=== PATIENT | female | born 1985 | race American Indian/Alaskan Native ===

== ENCOUNTER 2018-07-29 17:30 | Emergency (ER) | payer MEDICAID, OTHER ==
--- NOTE | 2018-07-29 19:22 | Emergency Department Report ---
ED ENT HPI - General Chief complaint: Dental/Oral Stated complaint: TOOTHACHE/STOMACH PAIN Time Seen by Provider: 07/29/18 19:19 Source: patient Mode of arrival: Ambulatory Limitations: No Limitations - History of Present Illness Initial comments: This is a 32-year-old male nontoxic, well nourished in appearance, no acute signs of distress presents to the ED with c/o of right upper and lower toothache 3 weeks. Patient stated is . Patient denies following up with a dentist. Patient stated that pain radiates from his job to his right side of head. Patient otherwise denies any head trauma. Patient describes toothache as aching level of 8 out of 10. Patient denies any facial swelling. Patient denies any numbness, tingling, fever, chills, headache, stiff neck, abdominal pain, chest pain, shortness of breath. Patient denies any drug allergies or significant past medical history. MD complaint: tooth pain -: week(s) (3) Location: tooth # 1 - pain here 2 - pain here Severity: mild Severity scale (0 -10): 8 Quality: aching Consistency: constant Improves with: none Worsens with: none Associated Symptoms: gum swelling, toothache. denies: fever, cough, pain with swallowing, sore throat, tinnitus, hearing loss, discharge from ear, rhinorrhea - Related Data Previous Rx's Medication Instructions Recorded Last Taken Type Pnv No.121/Iron/Folic Acid 1 each PO DAILY #30 tablet 07/04/18 Unknown Rx [ Multivitamin Tablet] Acetaminophen [Tylenol] 325 mg PO Q8H PRN #20 capsule 07/29/18 Unknown Rx Amoxicillin/K Clav Tab [Augmentin 1 tab PO Q12HR #20 tab 07/29/18 Unknown Rx 875 mg] Allergies Allergy/AdvReac Type Severity Reaction Status Date / Time No Known Allergies Allergy Unverified 07/04/18 15:42 ED Dental HPI - General Chief complaint: Dental/Oral Stated complaint: TOOTHACHE/STOMACH PAIN Time Seen by Provider: 07/29/18 19:19 Source: patient Mode of arrival: Ambulatory Limitations: No Limitations - Related Data Previous Rx's Medication Instructions Recorded Last Taken Type Pnv No.121/Iron/Folic Acid 1 each PO DAILY #30 tablet 07/04/18 Unknown Rx [ Multivitamin Tablet] Acetaminophen [Tylenol] 325 mg PO Q8H PRN #20 capsule 07/29/18 Unknown Rx Amoxicillin/K Clav Tab [Augmentin 1 tab PO Q12HR #20 tab 07/29/18 Unknown Rx 875 mg] Allergies Allergy/AdvReac Type Severity Reaction Status Date / Time No Known Allergies Allergy Unverified 07/04/18 15:42 ED Review of Systems ROS: Stated complaint: TOOTHACHE/STOMACH PAIN Other details as noted in HPI Constitutional: denies: chills, fever Eyes: denies: eye pain, eye discharge, vision change ENT: dental pain. denies: ear pain, throat pain Respiratory: denies: cough, shortness of breath, wheezing Cardiovascular: denies: chest pain, palpitations Endocrine: no symptoms reported Gastrointestinal: denies: abdominal pain, nausea, diarrhea Genitourinary: denies: urgency, dysuria, discharge Musculoskeletal: denies: back pain, joint swelling, arthralgia Skin: denies: rash, lesions Neurological: denies: headache, weakness, paresthesias Psychiatric: denies: anxiety, depression Hematological/Lymphatic: denies: easy bleeding, easy bruising ED Past Medical Hx - Surgical History Additional Surgical History: x1 - Social History Smoking Status: Never Smoker Substance Use Type: None - Medications Home Medications: Home Medications Medication Instructions Recorded Confirmed Last Taken Type Pnv No.121/Iron/Folic Acid 1 each PO DAILY #30 tablet 07/04/18 Unknown Rx [ Multivitamin Tablet] Acetaminophen [Tylenol] 325 mg PO Q8H PRN #20 capsule 07/29/18 Unknown Rx Amoxicillin/K Clav Tab [Augmentin 1 tab PO Q12HR #20 tab 07/29/18 Unknown Rx 875 mg] ED Physical Exam - General Limitations: No Limitations General appearance: alert, in no apparent distress - Head Head exam: Present: atraumatic, normocephalic - Expanded ENT Exam Expanded Ear exam: Present: normal external inspection Mouth exam: Present: normal external inspection. Absent: drooling, trismus Teeth exam: Present: dental caries, fractured tooth #, dental tenderness #, gingival enlargement, other (no facial swelling) Throat exam: Positive: normal inspection, tonsillar exudate - Neck Neck exam: Present: normal inspection ED Course - Reevaluation(s) Reevaluation #1: 07/29/18 19:25 Patient is speaking in full sentences with no signs of distress noted. Critical care attestation.: If time is entered above; I have spent that time in minutes in the direct care of this critically ill patient, excluding procedure time. ED Disposition Clinical Impression: Dental caries, Gingivitis Disposition: TO HOME OR SELFCARE Is pt being admited?: No Does the pt Need Aspirin: No Condition: Stable Instructions: Dental Caries (ED), Gingivitis (ED) Additional Instructions: Follow-up with a dentist doctor in 3-5 days or if symptoms worsen and continue return to emergency room as soon as possible. Prescriptions: Acetaminophen [Tylenol] 325 mg PO Q8H PRN #20 capsule PRN Reason: Pain, Moderate (4-6) Amoxicillin/K Clav Tab [Augmentin 875 mg] 1 tab PO Q12HR #20 tab Referrals: PRIMARY CAREMD [Referring] - 3-5 Days SHERYL CALDERON MD [Staff Physician] - 3-5 Days [facility] [Outside] - 3-5 Days Forms: Work/School Release Form(ED)
[2018-07-29 19:32] VITALS: BP 120/70
== END 2018-07-29 19:41 | disposition home or self-care (01) ==
LOC: ED 17:30
DX: K02.9 Dental caries, unspecified (principal); K05.10 Chronic gingivitis, plaque induced
CPT/HCPCS: 99282

== ENCOUNTER 2018-10-26 16:36 | Inpatient (IN) | payer MEDICAID ==
--- NOTE | 2018-10-26 23:48 | Ultrasound Report ---
PROCEDURE: US OB BPP WO NON-STRESS TECHNIQUE: Sonographic evaluation for breathing, movement, tone, and amniotic flui d volume was performed. HISTORY: s/p fall trauma COMPARISONS: None . FINDINGS: FETUS Amniotic fluid volume score of 0 . breathing: Normal-score 2 . movement: Normal-score 2 . tone: Normal-score 2 . Score: 6 of 8 . IMPRESSION: Biophysical profile score of 6 of 8. Diminished amniotic fluid volume . This document is electronically signed by Carol Sandoval DO., Oct 26 2018 11:46:15 PM ET
--- NOTE | 2018-10-26 23:50 | Ultrasound Report ---
PROCEDURE: US OB LIMITED TECHNIQUE: Real-time limited sonographic examination was performed for evaluation of well-bein g, amniotic fluid for each fetus with image documentation (1 or more fetuses). HISTORY: Trauma s/p fall COMPARISONS: None . FINDINGS: There is a single fetus in a vertex presentation. heart rate 1 35 bpm. The amniotic fluid volum e for 4 quadrants is 3.2 cm. This is diminished. No other measurements are obtained on this study. IMPRESSION: There is a single fetus in a vertex presentation. heart rate 1 35 bpm. 4 quadrant amniotic fluid volume 3.2 cm, this is diminished. This document is electronically signed by Carol Sandoval DO., Oct 26 2018 11:48:45 PM ET
[2018-10-27] MEDS ORDERED: COLACE PO PRN (00:01)
[2018-10-27] MEDS: LACTATED RINGERS 1,000 ML IV SCH ×4 (00:38→23:57)
[2018-10-27 00:52] LABS: Basophils % (Auto) 0.6 % (0.0-1.8); Eosinophils # (Auto) 0.5 K/mm3 (0.0-0.4); Eosinophils % (Auto) 6.8 % (0.0-4.3); Hematocrit 36.7 % (30.3-42.9); Hemoglobin 12.8 gm/dl (10.1-14.3); Lymphocytes # (Auto) 1.9 K/mm3 (1.2-5.4); Lymphocytes % (Auto) 26.7 % (13.4-35.0); Mean Corpuscular HGB Conc 35 % (30-34); Mean Corpuscular Volume 90 fl (79-97); Monocytes # (Auto) 0.6 K/mm3 (0.0-0.8); Platelet Count 197 K/mm3 (140-440); Red Blood Count 4.07 M/mm3 (3.65-5.03); Red Cell Distribution Width 14.1 % (13.2-15.2)
--- NOTE | 2018-10-27 09:54 | History and Physical Report ---
History of Present Illness Chief complaint: "I fell on Friday" History of present illness: 32yo 35 1/7 weeks gestation, a patient of [facility] was told to come to L&D on Friday 4 days after falling at a wedding. She states the step was hard to visualiz and she fell on her left backside. She denies any bleeding or fluid loss and reports good movement. SHE HAS HAD ONE PRIOR CSECTION AND ONE SUBSEQUENT , both at [place]. She states she began care at [address] Frank Sheth. She states her first and only ultrasound was 10/05/18. Yesterday, An ultrasound was done revealing an PAULINO of 3.2cm Her records are not available from [facility]. She was monitored on L&D and ultrasound repeated and PAULINO is 4.5. Therefore she is being admitted for IV hydration and maternal medicine consult. Her BPP is 6/8 (-2 for oligohydramnios) Past History Past Surgical History: section Social history: , lives with family - Obstetrical History : 5 Number of Living Children: 4 (youngest 1year 7mo) Medications and Allergies Allergies Allergy/AdvReac Type Severity Reaction Status Date / Time No Known Allergies Allergy Unverified 07/04/18 15:42 Home Medications Medication Instructions Recorded Confirmed Last Taken Type Pnv No.121/Iron/Folic Acid 1 each PO DAILY #30 tablet 07/04/18 10/27/18 10/25/18 Rx [ Multivitamin Tablet] Active Meds: Active Medications Acetaminophen (Tylenol) 650 mg PO Q4H PRN PRN Reason: Pain MILD(1-3)/Fever >100.5/MELGOZA Docusate Sodium (Colace) 100 mg PO Q12H PRN PRN Reason: Constipation Lactated Ringer's (Lactated Ringers) 1,000 mls @ 125 mls/hr IV DIRECT LEIGHANN Last Admin: 10/27/18 00:38 Dose: 125 mls/hr Documented by: Multivitamins/Iron/Calcium ( Vitamin) 1 each PO QDAY LEIGHANN - Vital Signs Vital signs: Vital Signs Pulse BP 77 124/83 10/26/18 18:32 10/26/18 18:32 Temp Pulse Resp BP Pulse Ox 98.2 F 88 18 118/75 10/26/18 23:31 10/27/18 04:25 10/26/18 18:33 10/27/18 04:25 - Obstetrical FHR: category 1 Results Result Diagrams: 10/27/18 00:38 Abnormal lab results 10/27/18 Range/Units 00:38 MCHC 35 H (30-34) % [place] % (Auto) 8.0 H (0.0-7.3) % Eos % (Auto) 6.8 H (0.0-4.3) % Eos # 0.5 H (0.0-0.4) K/mm3 All other labs normal. Assessment and Plan - Patient Problems (1) 35 weeks gestation of Current Visit: Yes Status: Acute Plan to address problem: PREVIOUS SECTION - 4 years ago. PREVIOUS 1 yr 7 months ago Obtain records from [facility] (2) Oligohydramnios Current Visit: Yes Status: Acute Plan to address problem: IV hydration Maternal medicine consult US for EFW, presentation
[2018-10-27] MEDS: PRENATAL VITAMIN PO SCH (10:47)
[2018-10-27] MEDS: TYLENOL PO PRN ×2 (10:48→19:28)
--- NOTE | 2018-10-27 12:30 | Ultrasound Report ---
ULTRASOUND OB LIMITED History: Decreased PAULINO Technique: Transabdominal ultrasound with Doppler interrogation. Gestation: Single Position: Cephalic Amniotic Fluid: Decreased PAULINO = 4.5 cm Heart Rate: 168 BPM
[2018-10-27] MEDS ORDERED: TYLENOL #3 PO ONE (23:00)
[2018-10-28] MEDS ORDERED: MORPHINE IV ONE (00:55)
[2018-10-28] MEDS: TYLENOL PO PRN ×3 (04:26→18:17)
[2018-10-28] MEDS: LACTATED RINGERS 1,000 ML IV SCH ×3 (04:28→17:17)
--- NOTE | 2018-10-28 10:57 | Progress Note ---
Assessment and Plan - Patient Problems (1) 35 weeks gestation of Current Visit: Yes Status: Acute (2) Oligohydramnios Current Visit: Yes Status: Acute Plan to address problem: Continous monitoring. APA consult. Celestone for FLM. (3) SGA (small for gestational age), , affecting care of mother, antepartum Current Visit: Yes Status: Acute Plan to address problem: Patient's fundus is 32 cm. I told her that 3rd trimester sonogram are usually inaccurate at dating pregnancies and that she may be anywhere between 32 and 35 weeks gestation. Steroid for FLM ordered. Sonogram for PAULINO, EFW, BPP today. APA consult called. (4) Late care affecting Current Visit: Yes Status: Acute (5) Previous delivery affecting Current Visit: Yes Status: Acute Plan to address problem: Patient had 1 . (6) Toothache Current Visit: Yes Status: Acute Plan to address problem: Patient has appointment with dentist later this week. Augmentin given for possible dental infection. (7) Gestational HTN Current Visit: Yes Status: Acute Plan to address problem: Toxemia labs ordered. Subjective - Subjective Date of service: 10/28/18 Principal diagnosis: SIUP at 32 weeks with oligohydramnios Interval history: Patient is a 32 year old , LMP in , who presented to triage on 10/26/18 after she sustained a fall while attending an event with her family 2 days earlier (10/24/18). She denied any contractions, bleeding, fluid leakage. She reported good movement. Sonogram was done and showed an PAULINO of 3.2. She was admitted for observation, given IV hydration. Repeat sonogram 24 hours later showed an PAULINO of 4.5. She is a patient of [facility] and was a late registrant to care 2 weeks ago. She had her first sonogram on 10/05/18 who gave her an EDC of 11/30/18. This AM, she denies any contractions or fluid leakage but reported having a toothache and nasal congestion. She is afebrile. tracing is CAT1. Exam: fundal height 32 cm. Objective - Vital Signs Vital Signs: Vital Signs - 12hr 10/27/18 10/27/18 10/28/18 23:04 23:58 00:04 Temperature 98.1 F Pulse Rate 71 74 Respiratory 18 18 18 Rate Blood Pressure 167/100 Blood Pressure 157/78 [Left] 10/28/18 10/28/18 10/28/18 00:06 00:27 01:03 Temperature Pulse Rate 71 81 Respiratory 18 Rate Blood Pressure 157/78 158/100 Blood Pressure [Left] 10/28/18 10/28/18 10/28/18 01:06 01:30 01:33 Temperature Pulse Rate 77 65 Respiratory 18 Rate Blood Pressure 141/94 143/92 Blood Pressure [Left] 10/28/18 10/28/18 10/28/18 04:26 05:26 10:06 Temperature Pulse Rate 90 Respiratory 18 18 Rate Blood Pressure 137/91 Blood Pressure [Left] - Exam Cardiovascular: Normal S1, Normal S2 Lungs: Clear to auscultation Vulva: both: normal FHR: category 1 Uterine Contraction Monitor Mode: External Uterine Contraction Pattern: Absent Deep Tendon Reflex Grade: Normal +2 - Labs Labs: Abnormal Labs 10/27/18 00:38 MCHC 35 H [place] % (Auto) 8.0 H Eos % (Auto) 6.8 H Eos # 0.5 H - Results US- obstetric: report reviewed
--- NOTE | 2018-10-28 11:30 | Consultation ---
History of Present Illness Reason for consult: other (32yo 35 2/7 weeks gestation, a patient of [facility] She states she began care at [address] Frank Sheth. She states her first and only ultrasound was 10/05/18. Pt was told ( [facility] ) to come to L&D on Friday 4 days after falling at a wedding. She states she fell on her left backside. Yesterday, An ultrasound was done revealing an PAULINO of 3.2cm Her records are not available from [facility]. She was monitored on L&D and ultrasound repeated and PAULINO is 4.5. Therefore she is being admitted for IV hydration and BMZ Her BPP is 6/8 (-2 for oligohydramnios) Consult request OB provider stated " her belly felt small . fundal height is low" NO EFW was obtained She denies any bleeding or fluid loss and reports good movement. ) Past History Past Surgical History: section - Obstetrical History : 5 Medications and Allergies Allergies Allergy/AdvReac Type Severity Reaction Status Date / Time No Known Allergies Allergy Unverified 07/04/18 15:42 Home Medications Medication Instructions Recorded Confirmed Last Taken Type Pnv No.121/Iron/Folic Acid 1 each PO DAILY #30 tablet 07/04/18 10/27/18 10/25/18 Rx [ Multivitamin Tablet] Active Meds: Active Medications Acetaminophen (Tylenol) 650 mg PO Q4H PRN PRN Reason: Pain MILD(1-3)/Fever >100.5/MELGOZA Last Admin: 10/28/18 04:26 Dose: 650 mg Documented by: Amoxicillin/Clavulanate Potassium (Augmentin 875 Mg) 1 each PO Q12HR LEIGHANN Betamethasone Acet/Betameth SodPhos (Celestone Soluspan) 12 mg IM Q24HR LEIGHANN Docusate Sodium (Colace) 100 mg PO Q12H PRN PRN Reason: Constipation Lactated Ringer's (Lactated Ringers) 1,000 mls @ 200 mls/hr IV DIRECT LEIGHANN Stop: 10/31/18 00:59 Last Admin: 10/28/18 09:47 Dose: 125 mls/hr Documented by: Multivitamins/Iron/Calcium ( Vitamin) 1 each PO QDAY LEIGHANN Last Admin: 10/27/18 10:47 Dose: 1 each Documented by: Review of Systems Constitutional: no chills Eyes: deferred Ears, nose, mouth and throat: deferred Cardiovascular: no edema Breasts: deferred Gastrointestinal: no abdominal pain Genitourinary: no vaginal bleeding, no vaginal discharge, no leakage of fluid, no pelvic pain, no contractions Rectal Exam: deferred Neurological: no seizures Endocrine: no fatigue - Vital Signs Vital signs: Vital Signs Pulse BP 77 124/83 10/26/18 18:32 10/26/18 18:32 Temp Pulse Resp BP Pulse Ox 98.4 F 90 16 137/91 10/28/18 09:15 10/28/18 10:06 10/28/18 09:15 10/28/18 10:06 - Physical Exam Breasts: Positive: deferred Cardiovascular: Regular rate Lungs: Positive: Normal air movement Abdomen: Negative: tenderness, guarding Uterus: Negative: tender Extremities: Positive: normal - Obstetrical FHR: category 1 (for 35.2 weeks ) Uterine Contraction Monitor Mode: External Uterine Contraction Pattern: Absent Results Result Diagrams: 10/28/18 12:56 10/28/18 12:56 All other labs normal. Ultrasound: report reviewed (SEE [facility] full report ) Assessment and Plan A ) IUP @ 35.2 weeks Limited PNC ( x 1 visit ) Oligo Reported by Primary OB S < D ( NO EFW provided ) BPP of 6/8 ( - 2 for Oligo ) Prev C/S history + history IV hydration in progress BMZ for FLM P) Remain in patient Reassess PAULINO 48 hrs Document her genetic screen ( NIPT or MSAFP) Document her EFW Continue current medical regimen Document negative nitrazine and pelvic exam for ROM Complete BMZ for FLM Remain in patient until PAULINO > 7 cm With a continued Oligo as per ACOG timing of delivery Late / Early Term @ 36-37 weeks
[2018-10-28] MEDS: PRENATAL VITAMIN PO SCH (11:39)
[2018-10-28] MEDS: CELESTONE SOLUSPAN IM SCH (11:41)
[2018-10-28] MEDS: AUGMENTIN 875 MG PO SCH (12:43)
[2018-10-28 13:42] LABS: Hematocrit 36.1 % (30.3-42.9); Hemoglobin 12.1 gm/dl (10.1-14.3); Mean Corpuscular HGB Conc 34 % (30-34); Mean Corpuscular Volume 91 fl (79-97); Platelet Count 175 K/mm3 (140-440); Red Blood Count 3.95 M/mm3 (3.65-5.03); Red Cell Distribution Width 13.8 % (13.2-15.2)
[2018-10-28 14:08] LABS: Alanine Aminotransferase 8 units/L (7-56); Uric Acid 4.6 mg/dL (3.5-7.6)
--- NOTE | 2018-10-28 16:50 | Ultrasound Report ---
PROCEDURE: US OB >= 14 WEEKS FETUS TECHNIQUE: Real-time transabdominal sonography of the uterus, placenta, amniotic fluid, adnexa, and fetus was performed with image documentation. Measurements were obtained to determine age/size. M-mode Doppler was used to document heartbeat. ADDITIONAL GESTATION: None. HISTORY: conflicting dates vs measurements COMPARISONS: None . FINDINGS: Real-time ultrasound of the pelvis was performed with attention to the gravid uterus. The These images demonstrate a single live intrauterine gestation in cephalic lie. Amniotic fluid index is mildly low at 5.3 cm. There is a left lateral placenta, grade 2. cardiac activity is present at 143 bpm. Cervical length was 3.7 cm which is within normal limits. Biparietal diameter is 8.4 cm which corresponds to 33 weeks and 6 days. Head circumference was 30.7 cm which corresponds to 34 weeks and 2 days. Abdominal circumference is 26.0 cm which corresponds to 30 weeks and 1 day. femur length is 6.3 cm which corresponds to 32 weeks and 5 days. Estimated weight was 1814 g. IMPRESSION: Single live intrauterine gestation at approximately 32 weeks and 5 days. Estimated date of delivery i s December 18, 2018. Amniotic fluid index is low at 5.3 cm This document is electronically signed by Tim Goldberg MD., Oct 28 2018 04:48:49 PM ET
[2018-10-29] MEDS: AUGMENTIN 875 MG PO SCH ×3 (00:05→22:06)
[2018-10-29] MEDS: LACTATED RINGERS 1,000 ML IV SCH ×2 (08:49→16:49)
[2018-10-29] MEDS ORDERED: ZOFRAN IV PRN (09:35)
[2018-10-29] MEDS ORDERED: TYLENOL PO PRN (09:35)
[2018-10-29] MEDS: PRENATAL VITAMIN PO SCH (09:52)
[2018-10-29] MEDS ORDERED: PRENATAL VITAMIN PO SCH (10:00)
[2018-10-29] MEDS: CELESTONE SOLUSPAN IM SCH (11:42)
--- NOTE | 2018-10-29 11:55 | Progress Note ---
Assessment and Plan - Patient Problems (1) Oligohydramnios Current Visit: Yes Status: Acute Plan to address problem: Continous monitoring. APA consult done. Recommended to keep patient in the hospital until PAULINO is >7. F/U PAULINO on 10/30/18. Celestone for FLM completed today. (2) Late care affecting Current Visit: Yes Status: Acute (3) Previous delivery affecting Current Visit: Yes Status: Acute Plan to address problem: Patient had 1 . (4) Toothache Current Visit: Yes Status: Acute Plan to address problem: Patient has appointment with dentist later this week. Augmentin given for possible dental infection. (5) Gestational HTN Current Visit: Yes Status: Acute Plan to address problem: Toxemia labs were normal. BP has been stable. Pt remains asymptomatic. (6) 32 weeks gestation of Current Visit: Yes Status: Acute Plan to address problem: Fundal height is 32 cm. Sonogram correlates with 32 weeks gestation. Subjective - Subjective Date of service: 10/29/18 Principal diagnosis: SIUP at 32 weeks with oligohydramnios Interval history: Patient is a 32 year old , LMP in , who presented to triage on 10/26/18 after she sustained a fall while attending an event with her family 2 days earlier (10/24/18). She denied any contractions, bleeding, fluid leakage. She reported good movement. Sonogram was done and showed an PAULINO of 3.2. tracing was CAT1. She is a patient of [facility] and was a late registrant to care 2 weeks ago. She had her first sonogram on 10/05/18 who gave her an EDC of 11/30/18. She was admitted for observation, given IV hydration. Repeat sonogram 24 hours later showed an PAULINO of 4.5. Exam: fundal height is 32 cm. Sonogram (10/28/18) showed an EFW of 1814 gms, PAULINO 5.3. APA consult was done and agreed with inpatient observation, steroid for FLM. They recommended that patient remains inpatient until PAULINO is >7. Next sono scheduled for 10/30/18. Yesterday, she reported having a toothache and nasal congestion. She is on Augmentin PO for toothache. Objective - Vital Signs Vital Signs: Vital Signs - 12hr 10/29/18 10/29/18 10/29/18 03:15 04:10 05:53 Temperature 98.0 F 98.9 F Pulse Rate 88 Respiratory 20 20 Rate Blood Pressure 111/68 10/29/18 10/29/18 10/29/18 06:53 07:51 08:52 Temperature Pulse Rate 71 100 H 82 Respiratory Rate Blood Pressure 118/67 115/70 130/83 10/29/18 10/29/18 09:08 09:51 Temperature 97.7 F Pulse Rate 85 Respiratory Rate Blood Pressure 131/82 - Exam Cardiovascular: Normal S1, Normal S2 Lungs: Clear to auscultation Vulva: both: normal FHR: category 1 Uterine Contraction Monitor Mode: External Uterine Contraction Pattern: Absent Deep Tendon Reflex Grade: Normal +2 - Labs Labs: Abnormal Labs 10/27/18 10/28/18 00:38 12:56 MCHC 35 H [place] % (Auto) 8.0 H Eos % (Auto) 6.8 H Eos # 0.5 H Creatinine 0.4 L Laboratory Results - last 24 hr 10/28/18 10/28/18 12:56 12:56 WBC 4.8 RBC 3.95 Hgb 12.1 Hct 36.1 MCV 91 MCH 31 MCHC 34 RDW 13.8 Plt Count 175 Creatinine 0.4 L Estimated GFR > 60 Uric Acid 4.6 AST 13 ALT 8 Lactate Dehydrogenase 161 - Results US- obstetric: report reviewed
[2018-10-29 12:16] LABS: Bilirubin,Urine NEG (Negative); Blood,Urine NEG (Negative); Color,Urine Yellow (Yellow); Mucus,Urine FEW /HPF; Protein,Urine <15 mg/dL mg/dL (Negative); Urobilinogen,Urine < 2.0 mg/dL (<2.0); WBC,Urine < 1.0 /HPF (0.0-6.0)
[2018-10-29] MEDS: TYLENOL PO PRN (18:25)
[2018-10-29] MEDS ORDERED: AMBIEN PO PRN ×2 (22:00)
[2018-10-30] MEDS: LACTATED RINGERS 1,000 ML IV SCH ×3 (03:09→17:15)
--- NOTE | 2018-10-30 09:39 | Progress Note ---
Assessment and Plan - Patient Problems (1) Oligohydramnios Current Visit: Yes Status: Acute Plan to address problem: IV hydration Per APA consult plan to keep in house until PAULINO > 7. Currently 5.3 and US w PAULINO ordered for today. (2) 32 weeks gestation of Current Visit: Yes Status: Acute Plan to address problem: s/p BMZ for lung maturity Obtain records from office to compare dating/US. Limited care. History of fall. Subjective - Subjective Principal diagnosis: SIUP at 32 weeks with oligohydramnios Interval history: 32yo 32 weeks gestation by US done during this admission, a patient of [facility], being managed for oligohydramnios, BPP 6/8. Her NST remains Category II FHT. US EFW 1800g. Today she complains of loss of a small amount of fluid x 1 occurrence yesterday. No vaginal bleeding. She reports good movement. She is resting peacefully in bed. Objective - Vital Signs Vital Signs: Vital Signs - 12hr 10/30/18 10/30/18 10/30/18 03:03 04:03 04:07 Temperature 98.2 F Pulse Rate 73 77 Respiratory 18 Rate Blood Pressure 128/79 111/65 10/30/18 10/30/18 10/30/18 05:03 06:03 07:03 Temperature Pulse Rate 72 69 88 Respiratory Rate Blood Pressure 112/71 120/70 114/69 10/30/18 10/30/18 08:19 08:20 Temperature 97.7 F Pulse Rate 82 Respiratory 18 Rate Blood Pressure 117/77 - Labs Labs: Abnormal Labs 10/27/18 10/28/18 00:38 12:56 MCHC 35 H [place] % (Auto) 8.0 H Eos % (Auto) 6.8 H Eos # 0.5 H Creatinine 0.4 L Laboratory Results - last 24 hr 10/29/18 09:15 Urine Color Yellow Urine Turbidity Clear Urine pH 7.0 Ur Specific [place] 1.006 Urine Protein <15 mg/dl Urine Glucose (UA) Neg Urine Ketones 20 Urine Blood Neg Urine Nitrite Neg Urine Bilirubin Neg Urine Urobilinogen < 2.0 Ur Leukocyte Esterase Tr Urine WBC (Auto) < 1.0 Urine RBC (Auto) 2.0 U Epithel Cells (Auto) < 1.0 Urine Mucus Few
[2018-10-30] MEDS: PRENATAL VITAMIN PO SCH (10:06)
[2018-10-30] MEDS: AUGMENTIN 875 MG PO SCH ×2 (10:06→21:59)
--- NOTE | 2018-10-30 14:15 | Ultrasound Report ---
ULTRASOUND OB LIMITED History: PAULINO Technique: Transabdominal ultrasound with Doppler interrogation. Gestation: Single Position: Cephalic Amniotic Fluid: Decreased PAULINO = 2.4 cm Heart Rate: 130 BPM
--- NOTE | 2018-10-30 14:15 | Ultrasound Report ---
ULTRASOUND BIOPHYSICAL PROFILE: History: Oligohydramnios Technique: Transabdominal ultrasound with Doppler interrogation. 2 - breathing movements 2 - movements 2 - posture and tone 0 - Qualitative amniotic fluid volume 6 - TOTAL SCORE OF POSSIBLE 8 Heart Rate (bpm) 130
--- NOTE | 2018-10-30 17:07 | Event Note ---
CHART REVIEW Records received from [facility] today. Patient had 2 visits both 10/2018. labs drawn 08/17/2018. US ordered but not done at that time. Ultrasound completed 10/07/2018 - US not in chart. Final CARMELLA 11/30/2018 (unsure what Final CARMELLA based on) Gestational age 35wks 4/7 days presumably based on 31 week sono. -Initial Ultrasound from 10/07/18 NOT FAXED and patient unsure of LMP - was Therefore best summation is is IUGR and oligohydramnios based on available data.
--- NOTE | 2018-10-30 19:39 | Consultation ---
History of Present Illness Consult date: 10/30/18 Requesting physician: HENRY CORBETT History of present illness: (32yo ??? 35 2/7 weeks gestation but [facility] US on 10/28/18 Biometry of 32 5/7 weeks a patient of [facility] She states she began care at [address] Frank Sheth. She states her first and only ultrasound was 10/05/18. Pt was told ( [facility] ) to come to L&D on Friday 4 days after falling at a wedding. She states she fell on her left backside. An ultrasound was done revealing an PAULINO of 3.2cm Her records are not available from [facility]. She was monitored on L&D and ultrasound repeated and PAULINO is 4.5. Therefore she is being admitted for IV hydration and BMZ Her BPP is 6/8 (-2 for oligohydramnios) Consult request OB provider stated " her belly felt small . fundal height is low" ======= [facility] US on 10/28/18 Biometry of 32 5/7 weeks Records indicated she is 35 4/7 weeks with CARMELLA of 11/30/[address] CORBETT CHART REVIEW Records received from [facility] today. Patient had 2 visits both 10/2018. labs drawn 08/17/2018. US ordered but not done at that time. Ultrasound completed 10/07/2018 - US not in chart. Final CARMELLA 11/30/2018 (unsure what Final CARMELLA based on) Gestational age 35wks 4/7 days presumably based on 31 week sono. -Initial Ultrasound from 10/07/18 NOT FAXED and patient unsure of LMP - was Therefore best summation is is IUGR and oligohydramnios based on available data. Review of [facility] Records US done 10/05/18 put her at 32 0/7 weeks with CARMELLA of 11/30/18 would be at 1% Patient would be IUGR and Oligo Please obtain Cord Arterial Dopplers deliver if AEDF or Reverse otherwise Delivery indicated 24 Hours after after Steroid Complete and Patient IUGR with Oligo - Please have OB Review Records to confirm dating prior to delivery Discussed with Dr. Reji Sheth Please confirm PPROM Please get Cord Dopplers Review EFM and Category I tracing good accel and mod variabiltiy BPP and cord dopplers MWF Will Try to Contact [facility] but Dr. Jeffrey Sheth Not Available It is possible patient is 32 5/7 weeks by [facility] US on 10/28/18 putting her at 33 0/7 weeks today - other option to watch conservative management as long as A-P testing reassuring and EFM reassuring and delivery if PPROM at 34 weeks or if remains oligo at 36 to 37 weeks Past History Past Surgical History: section - Obstetrical History : 5 Medications and Allergies Allergies Allergy/AdvReac Type Severity Reaction Status Date / Time No Known Allergies Allergy Unverified 07/04/18 15:42 Home Medications Medication Instructions Recorded Confirmed Last Taken Type Pnv No.121/Iron/Folic Acid 1 each PO DAILY #30 tablet 07/04/18 10/27/18 10/25/18 Rx [ Multivitamin Tablet] Active Meds: Active Medications Acetaminophen (Tylenol) 650 mg PO Q4H PRN PRN Reason: Pain MILD(1-3)/Fever >100.5/MELGOZA Last Admin: 10/29/18 18:25 Dose: 650 mg Documented by: Amoxicillin/Clavulanate Potassium (Augmentin 875 Mg) 1 each PO Q12HR [facility] Last Admin: 10/30/18 10:06 Dose: 1 each Documented by: Docusate Sodium (Colace) 100 mg PO Q12H PRN PRN Reason: Constipation Lactated Ringer's (Lactated Ringers) 1,000 mls @ 200 mls/hr IV DIRECT LEIGHANN Stop: 10/31/18 00:59 Last Admin: 10/30/18 17:15 Dose: 125 mls/hr Documented by: Multivitamins/Iron/Calcium ( Vitamin) 1 each PO QDAY LEIGHANN Last Admin: 10/30/18 10:06 Dose: 1 each Documented by: Ondansetron HCl (Zofran) 4 mg IV Q6H PRN PRN Reason: Nausea And Vomiting Zolpidem Tartrate (Ambien) 2.5 mg PO QHS PRN PRN Reason: Insomnia - Vital Signs Vital signs: Vital Signs Pulse BP 77 124/83 10/26/18 18:32 10/26/18 18:32 Temp Pulse Resp BP Pulse Ox 97.9 F 78 18 132/78 10/30/18 15:48 10/30/18 15:50 10/30/18 15:48 10/30/18 15:50 Results Result Diagrams: 10/28/18 12:56 10/28/18 12:56 All other labs normal.
[2018-10-31] MEDS: LACTATED RINGERS 1,000 ML IV SCH ×3 (01:16→16:25)
[2018-10-31] MEDS: COLACE PO PRN (01:23)
[2018-10-31] MEDS: PRENATAL VITAMIN PO SCH (10:49)
[2018-10-31] MEDS: AUGMENTIN 875 MG PO SCH (10:49)
--- NOTE | 2018-10-31 12:10 | Progress Note ---
Assessment and Plan - Patient Problems (1) Oligohydramnios Current Visit: Yes Status: Acute Plan to address problem: At this point, gestational age is estimated to be 35 weeks and 5 days by sonogram. Celestone for FLM was completed when gestational age as assumed to be 32 weeks. [facility] consult was done. [facility] recommended delivery for oligohydramnios and IUGR. Cord doppler was normal today. Patient was counselled for repeat C/section. She ate. She will be NPO after midnight. Continous monitoring. (2) Late care affecting Current Visit: Yes Status: Acute (3) Previous delivery affecting Current Visit: Yes Status: Acute Plan to address problem: Patient had 1 . She was told [facility] and that she will be delivered via repeat C/section. Risks and benefits were discussed with her. (4) Toothache Current Visit: Yes Status: Acute Plan to address problem: Patient has appointment with dentist later this week. Augmentin given for possible dental infection. (5) IUGR (intrauterine growth restriction) Current Visit: Yes Status: Acute Plan to address problem: EFW was 1814 gms, PAULINO was 2. Umbilical doppler was normal today. [facility] saw the patient and recommended delivery as patient is considered 35 weeks and 5 days with IUGR and oligohydramnios. Repeat C/section was discussed with the patient. Risk and benefits of the procedure were discussed with the patient. She ate an hour ago. She needs to be NPO for 8 hours. Subjective - Subjective Date of service: 10/31/18 Principal diagnosis: SIUP at 35 weeks and 5 days with oligohydramnios and IUGR Interval history: Patient is a 32 year old , LMP in , who presented to triage on 10/26/18 after she sustained a fall while attending an event with her family 2 days earlier (10/24/18). She denied any contractions, bleeding, fluid leakage. She reported good movement. Sonogram was done and showed an PAULINO of 3.2. tracing was CAT1. She is a patient of [facility] and was a late registrant to care 2 weeks ago. She had her first sonogram on 10/05/18 who gave her an EDC of 11/30/18. She was admitted for observation, given IV hydration. Repeat sonogram 24 hours later showed an PAULINO of 4.5. Exam: fundal height is 32 cm. Sonogram (10/28/18) showed an EFW of 1814 gms, PAULINO 5.3. Steroid for FLM completed. [facility] consult was done and agreed with inpatient management. They recommended that patient remains inpatient until PAULINO is >7. However, sono on 10/30/18 showed PAULINO of 2.3. Patient's records were reviewed and the only EDC we have is 11/30/18 Therefore, patient is assumed to be 35 weeks and 5 days gestation. Today, patient denies any complaint. Objective - Vital Signs Vital Signs: Vital Signs - 12hr 10/31/18 10/31/18 08:50 08:54 Temperature 97.9 F Pulse Rate 70 Respiratory 18 Rate Blood Pressure 123/82 - Exam Cardiovascular: Normal S1, Normal S2 Lungs: Clear to auscultation Vulva: both: normal FHR: category 1 Uterine Contraction Monitor Mode: External Uterine Contraction Pattern: Absent - Labs Labs: Abnormal Labs 10/27/18 10/28/18 00:38 12:56 MCHC 35 H [place] % (Auto) 8.0 H Eos % (Auto) 6.8 H Eos # 0.5 H Creatinine 0.4 L - Results US- obstetric: report reviewed
--- NOTE | 2018-10-31 14:06 | Ultrasound Report ---
PROCEDURE: US OB VELOCIMETRY UMBILCAL ART TECHNIQUE: Duplex Doppler ultrasound of the umbilical artery was performed HISTORY: oligohydramnios COMPARISONS: None. FINDINGS: There is a normal waveform of the umbilical artery with a systolic to diastolic ratio average of 2.35 . There is a normal resistive index with an average is 0.57. heart rate is 161 bpm. IMPRESSION: Normal ultrasound of the umbilical artery. This document is electronically signed by Rocío Mauricio MD., Oct 31 2018 02:04:51 PM ET
--- NOTE | 2018-10-31 14:10 | Ultrasound Report ---
PROCEDURE: US OB BPP WO NON-STRESS TECHNIQUE: Sonographic evaluation for breathing, movement, tone, and amniotic flui d volume was performed. HISTORY: ologohydramnios COMPARISONS: None . FINDINGS: FETUS Amniotic fluid volume Normal-score 2. At least one vertical pocket >2 cm or more in vertical axis . breathing: Normal-score 2 . movement: Normal-score 2 . tone: Normal-score 2 . Score: 8 of 8 . heart rate: 161 beats per minute IMPRESSION: Normal biophysical profile . This document is electronically signed by Rocío Mauricio MD., Oct 31 2018 02:08:10 PM ET
--- NOTE | 2018-10-31 14:32 | Progress Note ---
Assessment and Plan Assessment and plan: This patient records from yesterday are reviewed below CHART REVIEW Records received from [facility] today. Patient had 2 visits both 10/2018. US ordered but not done at that time. Ultrasound completed 10/07/2018 - US not in chart. Final CARMELLA 11/30/2018 (CARMELLA is based on US) Gestational age 35wks 5/7 days presumably based on 31 week sono. -Initial Ultrasound from 10/07/18 NOT FAXED and patient unsure of LMP - was Therefore best summation is infant is IUGR and oligohydramnios based on available data. Review of [place] Records US done 10/05/18 put her at 32 0/7 weeks with CARMELLA of 11/30/18 would be at 1% Patient would be IUGR and Oligo Please obtain Cord Arterial Dopplers deliver if AEDF or Reverse otherwise Delivery indicated 24 Hours after after Steroid Complete and Patient IUGR with Oligo - Please have OB Review Records to confirm dating prior to delivery - this was reviewed It is possible patient is 32 5/7 weeks by [facility] US on 10/28/18 putting her at 33 0/7 weeks today - other option to watch conservative management as long as A-P testing reassuring and EFM reassuring and delivery if PPROM at 34 weeks or if remains oligo at 36 to 37 weeks FINAL NOTE: I have reviewed all the information as well and agree with the assessment yesterday by Dr Garcia as well that the patient is 35.5 weeks with IUGR and has Oligo; the patient BSUS was done today and I was present; the doppler was normal but there was almost no fluid around the fetus; at this time I would diagnose IUGR with oligo and to proceed with delivery. I have spoke with Dr Calderon about the recommendation and the patient will be delivered. Please call myself with any concerns Subjective - Subjective Date of service: 10/31/18 Principal diagnosis: SIUP at 32 weeks with oligohydramnios Interval history: the patient is doing well at this time and does not have any concerns at the moment good FM and also with no LOF Objective - Vital Signs Vital Signs: Vital Signs - 12hr 10/31/18 10/31/18 10/31/18 08:50 08:54 12:22 Temperature 97.9 F Pulse Rate 70 75 Respiratory 18 Rate Blood Pressure 123/82 122/80 - Exam Cardiovascular: Regular rate Abdomen: Present: normal appearance, soft. Absent: distention, tenderness, guarding Uterus: Present: normal. Absent: tenderness FHR: category 1 - Labs Labs: Abnormal Labs 10/27/18 10/28/18 00:38 12:56 MCHC 35 H [place] % (Auto) 8.0 H Eos % (Auto) 6.8 H Eos # 0.5 H Creatinine 0.4 L
[2018-10-31] MEDS ORDERED: PEPCID IV ONE (19:24)
[2018-10-31] MEDS ORDERED: REGLAN ONE (19:24)
[2018-10-31] MEDS ORDERED: BICITRA ONE (19:24)
[2018-10-31 22:20] LABS: Bilirubin,Urine NEG (Negative); Blood,Urine SM (Negative); Color,Urine Straw (Yellow); Mucus,Urine FEW /HPF; Protein,Urine <15 mg/dL mg/dL (Negative); Urobilinogen,Urine < 2.0 mg/dL (<2.0)
[2018-10-31 22:23] LABS: Uric Acid 4.3 mg/dL (3.5-7.6)
[2018-10-31 22:52] LABS: Alanine Aminotransferase 5 units/L (7-56)
[2018-10-31] MEDS ORDERED: MAGNESIUM SULFATE 4GM/100ML 4 GM/100 ML BAG IV ONE (23:49)
--- NOTE | 2018-10-31 23:54 | Event Note ---
Date: 10/31/18 Patient started to have elevated BP this afternoon. BP was 165/101, 165/100, 145/95, 145/89. She denies any headache, visual changes or RUQ pain. She reports good movement. Toxemia labs were done and showed elevated AST and LDH. Hb/Hct pending. NST is CAT 1. BPP 8/8 today. Patient is scheduled for repeat C/setion due to oligohydramnios and IUGR. Will start magnesium sulfate for seizure prophylaxis. Will monitor Mg levels, urine output and DTRs.
[2018-11-01] MEDS: MAGNESIUM SULFATE 40GM/1000ML 40 GM/1,000 ML BAG IV SCH ×2 (00:47→14:21)
[2018-11-01 01:54] LABS: Hematocrit 37.8 % (30.3-42.9); Hemoglobin 12.6 gm/dl (10.1-14.3); Mean Corpuscular HGB Conc 33 % (30-34); Mean Corpuscular Volume 91 fl (79-97); Platelet Count 187 K/mm3 (140-440); Red Blood Count 4.15 M/mm3 (3.65-5.03); Red Cell Distribution Width 14.1 % (13.2-15.2)
[2018-11-01] MEDS: TYLENOL PO PRN (02:35)
--- NOTE | 2018-11-01 09:55 | Progress Note ---
Assessment and Plan - Patient Problems (1) 35 weeks gestation of Current Visit: Yes Status: Acute (2) Oligohydramnios Current Visit: Yes Status: Acute Plan to address problem: . Patient was counselled for repeat C/section. Risks, benefits, and alternatives of the procedure were discussed in detail with the patient which included but not limited to the risk of infection, hemorrhage requiring blood transfusion, injury to the bowel or bladder and blood vessels. The patient expressed understanding, her questions were answered, and she gave informed consent. Anesthesia notified. monitoring. Keep NPO (3) IUGR (intrauterine growth restriction) Current Visit: Yes Status: Acute (4) Pre-eclampsia Current Visit: Yes Status: Acute (5) Late care Current Visit: Yes Status: Acute (6) Previous delivery affecting Current Visit: Yes Status: Acute Plan to address problem: Patient is for repeat C/section. Subjective - Subjective Date of service: 11/01/18 Principal diagnosis: SIUP at 35 weeks and 6 days with oligohydramnios and IUGR Interval history: Patient is a 32 year old , LMP in , who was admitted on 10/26 for oligohydramnios with PAULINO of 3.2. She came to the hospital 2 days after she fell while attending a wedding. The fall happened after she tripped on something and she hit her back. Sonogram was done to assess the placenta and the PAULINO was found to be low. At that time, she denied any contractions, fluid leakage or bleeding. She reported good movement. tracing was CAT1. She was kept for observation and repeat PAULINO 24 hours later was 4.5. She is a patient of [facility] [facility] and was a late registrant to care 2 weeks earlier. She had her first sonogram on 10/05/18 who gave her an EDC of 11/30/18 which puts her 35 weeks and 5 days, EFW was 1814 gms. Her fundal height was 32 cm. Patient was considered to be 35 weeks and 5 days gestation with oligohydramnios and IUGR. Yesterday, sonogram showed PAULINO of 2.3, normal cord doppler. [facility] consult was done and they recommended delivery. Patient developed elevated BP in the evening in the 165/90-100 range. She denied any headache visual changes or RUQ pain. Toxemia labs showed elevated AST and LDH. She started on magnesium sulfate for seizure prophylaxis. Labetolol was given for BP control. BP has been stable in the 110-120's/70's during the night. She had 1 C/section followed by one . She was counselled for repeat C/section because we don't do at this time. This AM, tracing is CAT1. Objective - Vital Signs Vital Signs: Vital Signs - 12hr 10/31/18 10/31/18 10/31/18 22:03 22:08 22:13 Temperature Pulse Rate 73 79 71 Respiratory Rate Blood Pressure 125/82 Blood Pressure [Left] O2 Sat by Pulse 99 99 Oximetry 10/31/18 10/31/18 10/31/18 22:18 22:23 22:28 Temperature Pulse Rate 73 69 70 Respiratory Rate Blood Pressure Blood Pressure [Left] O2 Sat by Pulse 99 99 99 Oximetry 10/31/18 10/31/18 10/31/18 22:33 22:38 22:43 Temperature Pulse Rate 73 70 74 Respiratory Rate Blood Pressure 122/77 Blood Pressure [Left] O2 Sat by Pulse 99 99 99 Oximetry 10/31/18 10/31/18 10/31/18 22:48 22:53 22:58 Temperature Pulse Rate 89 70 68 Respiratory Rate Blood Pressure Blood Pressure [Left] O2 Sat by Pulse 99 99 98 Oximetry 10/31/18 10/31/18 10/31/18 23:03 23:08 23:13 Temperature Pulse Rate 68 70 70 Respiratory Rate Blood Pressure 146/89 Blood Pressure [Left] O2 Sat by Pulse 99 98 98 Oximetry 10/31/18 10/31/18 10/31/18 23:18 23:23 23:28 Temperature Pulse Rate 69 67 72 Respiratory Rate Blood Pressure Blood Pressure [Left] O2 Sat by Pulse 97 97 99 Oximetry 10/31/18 10/31/18 10/31/18 23:33 23:38 23:43 Temperature Pulse Rate 69 78 67 Respiratory Rate Blood Pressure 127/84 Blood Pressure [Left] O2 Sat by Pulse 98 98 98 Oximetry 10/31/18 10/31/18 10/31/18 23:48 23:53 23:58 Temperature Pulse Rate 68 65 75 Respiratory Rate Blood Pressure Blood Pressure [Left] O2 Sat by Pulse 98 98 98 Oximetry 11/01/18 11/01/18 11/01/18 00:03 00:08 00:13 Temperature Pulse Rate 66 64 67 Respiratory Rate Blood Pressure 127/83 Blood Pressure [Left] O2 Sat by Pulse 97 97 98 Oximetry 11/01/18 11/01/18 11/01/18 00:18 00:23 00:27 Temperature Pulse Rate 76 71 73 Respiratory Rate Blood Pressure 161/94 Blood Pressure [Left] O2 Sat by Pulse 99 98 Oximetry 11/01/18 11/01/18 11/01/18 00:28 00:29 00:33 Temperature 98.1 F Pulse Rate 68 63 73 Respiratory 16 Rate Blood Pressure Blood Pressure 161/94 [Left] O2 Sat by Pulse 99 98 99 Oximetry 11/01/18 11/01/18 11/01/18 00:35 00:38 00:39 Temperature 98.3 F Pulse Rate 71 78 79 Respiratory 14 Rate Blood Pressure 121/78 Blood Pressure 114/74 [Left] O2 Sat by Pulse 99 99 Oximetry 11/01/18 11/01/18 11/01/18 00:40 00:43 00:45 Temperature Pulse Rate 76 80 80 Respiratory Rate Blood Pressure 114/74 117/74 Blood Pressure [Left] O2 Sat by Pulse 99 Oximetry 11/01/18 11/01/18 11/01/18 00:48 00:50 00:53 Temperature Pulse Rate 81 74 84 Respiratory Rate Blood Pressure 101/55 Blood Pressure [Left] O2 Sat by Pulse 99 99 Oximetry 11/01/18 11/01/18 11/01/18 00:55 00:56 00:58 Temperature 97.8 F Pulse Rate 78 73 79 Respiratory 16 Rate Blood Pressure 124/70 116/70 Blood Pressure 116/70 [Left] O2 Sat by Pulse 100 99 Oximetry 11/01/18 11/01/18 11/01/18 01:00 01:03 01:08 Temperature Pulse Rate 75 72 74 Respiratory Rate Blood Pressure 116/73 Blood Pressure [Left] O2 Sat by Pulse 99 99 Oximetry 11/01/18 11/01/18 11/01/18 01:11 01:13 01:15 Temperature 97.6 F Pulse Rate 81 78 72 Respiratory 16 Rate Blood Pressure 121/75 Blood Pressure 116/73 [Left] O2 Sat by Pulse 99 99 Oximetry 11/01/18 11/01/18 11/01/18 01:18 01:23 01:28 Temperature Pulse Rate 73 87 83 Respiratory Rate Blood Pressure Blood Pressure [Left] O2 Sat by Pulse 99 99 98 Oximetry 11/01/18 11/01/18 11/01/18 01:31 01:33 01:38 Temperature 97.6 F Pulse Rate 83 74 82 Respiratory 16 Rate Blood Pressure Blood Pressure [Left] O2 Sat by Pulse 98 99 99 Oximetry 11/01/18 11/01/18 11/01/18 01:43 01:48 01:53 Temperature Pulse Rate 80 103 H 87 Respiratory Rate Blood Pressure 110/69 Blood Pressure [Left] O2 Sat by Pulse 98 98 98 Oximetry 11/01/18 11/01/18 11/01/18 01:58 02:03 02:08 Temperature Pulse Rate 81 83 79 Respiratory Rate Blood Pressure Blood Pressure [Left] O2 Sat by Pulse 97 97 97 Oximetry 11/01/18 11/01/18 11/01/18 02:13 02:18 02:23 Temperature Pulse Rate 80 80 77 Respiratory Rate Blood Pressure 131/80 Blood Pressure [Left] O2 Sat by Pulse 97 98 99 Oximetry 11/01/18 11/01/18 11/01/18 02:28 02:33 02:38 Temperature Pulse Rate 88 90 91 H Respiratory Rate Blood Pressure Blood Pressure [Left] O2 Sat by Pulse 98 98 99 Oximetry 11/01/18 11/01/18 11/01/18 02:43 02:48 02:53 Temperature Pulse Rate 84 83 79 Respiratory Rate Blood Pressure 113/67 Blood Pressure [Left] O2 Sat by Pulse 98 98 97 Oximetry 11/01/18 11/01/18 11/01/18 02:58 03:03 03:08 Temperature Pulse Rate 82 93 H 85 Respiratory Rate Blood Pressure Blood Pressure [Left] O2 Sat by Pulse 97 98 98 Oximetry 11/01/18 11/01/18 11/01/18 03:13 03:18 03:23 Temperature Pulse Rate 88 87 86 Respiratory Rate Blood Pressure 108/65 Blood Pressure [Left] O2 Sat by Pulse 98 98 98 Oximetry 11/01/18 11/01/18 11/01/18 03:28 03:33 03:38 Temperature Pulse Rate 81 81 86 Respiratory Rate Blood Pressure Blood Pressure [Left] O2 Sat by Pulse 98 98 98 Oximetry 11/01/18 11/01/18 11/01/18 03:43 03:48 03:53 Temperature Pulse Rate 80 88 93 H Respiratory Rate Blood Pressure 121/81 Blood Pressure [Left] O2 Sat by Pulse 98 97 99 Oximetry 11/01/18 11/01/18 11/01/18 03:58 04:03 04:08 Temperature Pulse Rate 83 77 79 Respiratory Rate Blood Pressure Blood Pressure [Left] O2 Sat by Pulse 97 96 96 Oximetry 11/01/18 11/01/18 11/01/18 04:13 04:18 04:23 Temperature Pulse Rate 73 78 88 Respiratory Rate Blood Pressure 132/79 Blood Pressure [Left] O2 Sat by Pulse 96 96 97 Oximetry 11/01/18 11/01/18 11/01/18 04:28 04:33 04:38 Temperature Pulse Rate 81 82 79 Respiratory Rate Blood Pressure Blood Pressure [Left] O2 Sat by Pulse 96 96 96 Oximetry 11/01/18 11/01/18 11/01/18 04:43 04:48 04:53 Temperature Pulse Rate 77 82 98 H Respiratory Rate Blood Pressure Blood Pressure [Left] O2 Sat by Pulse 96 96 98 Oximetry 11/01/18 11/01/18 11/01/18 04:54 04:58 05:03 Temperature Pulse Rate 84 86 87 Respiratory Rate Blood Pressure 117/73 Blood Pressure [Left] O2 Sat by Pulse 97 98 Oximetry 11/01/18 11/01/18 11/01/18 05:08 05:13 05:18 Temperature Pulse Rate 77 87 86 Respiratory Rate Blood Pressure Blood Pressure [Left] O2 Sat by Pulse 97 98 98 Oximetry 11/01/18 11/01/18 11/01/18 05:21 05:23 05:28 Temperature Pulse Rate 86 86 87 Respiratory Rate Blood Pressure 110/74 Blood Pressure [Left] O2 Sat by Pulse 93 98 98 Oximetry 11/01/18 11/01/18 11/01/18 05:29 05:31 05:33 Temperature 97.8 F Pulse Rate 89 96 H Respiratory Rate Blood Pressure Blood Pressure [Left] O2 Sat by Pulse 94 96 Oximetry 11/01/18 11/01/18 11/01/18 05:34 05:38 05:43 Temperature Pulse Rate 89 100 H 97 H Respiratory Rate Blood Pressure Blood Pressure [Left] O2 Sat by Pulse 93 98 97 Oximetry 11/01/18 11/01/18 11/01/18 05:48 05:53 05:58 Temperature Pulse Rate 90 85 100 H Respiratory Rate Blood Pressure 114/67 Blood Pressure [Left] O2 Sat by Pulse 96 97 99 Oximetry 11/01/18 11/01/18 11/01/18 06:03 06:08 06:13 Temperature Pulse Rate 84 87 94 H Respiratory Rate Blood Pressure Blood Pressure [Left] O2 Sat by Pulse 98 99 98 Oximetry 11/01/18 11/01/18 11/01/18 06:18 06:23 06:24 Temperature Pulse Rate 91 H 86 81 Respiratory Rate Blood Pressure 108/66 Blood Pressure [Left] O2 Sat by Pulse 98 98 Oximetry 11/01/18 11/01/18 11/01/18 06:28 06:33 06:38 Temperature Pulse Rate 86 86 83 Respiratory Rate Blood Pressure Blood Pressure [Left] O2 Sat by Pulse 96 97 97 Oximetry 11/01/18 11/01/18 11/01/18 06:43 06:48 06:53 Temperature Pulse Rate 83 84 82 Respiratory Rate Blood Pressure Blood Pressure [Left] O2 Sat by Pulse 97 97 97 Oximetry 11/01/18 11/01/18 11/01/18 06:54 06:58 07:03 Temperature Pulse Rate 81 93 H 104 H Respiratory Rate Blood Pressure 96/62 Blood Pressure [Left] O2 Sat by Pulse 98 99 Oximetry 11/01/18 11/01/18 11/01/18 07:08 07:13 07:18 Temperature Pulse Rate 87 91 H 85 Respiratory Rate Blood Pressure Blood Pressure [Left] O2 Sat by Pulse 98 97 96 Oximetry 11/01/18 11/01/18 11/01/18 07:23 07:24 07:28 Temperature Pulse Rate 84 84 88 Respiratory Rate Blood Pressure 109/69 Blood Pressure [Left] O2 Sat by Pulse 96 97 Oximetry 11/01/18 11/01/18 11/01/18 07:33 07:38 07:43 Temperature Pulse Rate 84 82 81 Respiratory Rate Blood Pressure Blood Pressure [Left] O2 Sat by Pulse 97 97 97 Oximetry 11/01/18 11/01/18 11/01/18 07:48 07:53 07:54 Temperature Pulse Rate 83 89 86 Respiratory Rate Blood Pressure 111/70 Blood Pressure [Left] O2 Sat by Pulse 97 97 Oximetry 11/01/18 11/01/18 11/01/18 07:58 08:03 08:08 Temperature Pulse Rate 90 79 86 Respiratory Rate Blood Pressure Blood Pressure [Left] O2 Sat by Pulse 98 98 98 Oximetry 11/01/18 11/01/18 11/01/18 08:13 08:18 08:23 Temperature Pulse Rate 88 85 80 Respiratory Rate Blood Pressure Blood Pressure [Left] O2 Sat by Pulse 98 98 98 Oximetry 11/01/18 11/01/18 11/01/18 08:24 08:28 08:33 Temperature Pulse Rate 79 84 87 Respiratory Rate Blood Pressure 102/61 Blood Pressure [Left] O2 Sat by Pulse 98 98 Oximetry 11/01/18 11/01/18 11/01/18 08:38 08:43 08:48 Temperature Pulse Rate 86 89 88 Respiratory Rate Blood Pressure Blood Pressure [Left] O2 Sat by Pulse 97 98 97 Oximetry 11/01/18 11/01/18 11/01/18 08:53 08:54 08:58 Temperature Pulse Rate 84 100 H 100 H Respiratory Rate Blood Pressure 109/65 Blood Pressure [Left] O2 Sat by Pulse 97 98 Oximetry 11/01/18 11/01/18 11/01/18 09:03 09:08 09:13 Temperature Pulse Rate 82 84 81 Respiratory Rate Blood Pressure Blood Pressure [Left] O2 Sat by Pulse 96 96 96 Oximetry 11/01/18 11/01/18 11/01/18 09:18 09:23 09:24 Temperature Pulse Rate 82 91 H 87 Respiratory Rate Blood Pressure 105/66 Blood Pressure [Left] O2 Sat by Pulse 96 95 Oximetry 11/01/18 11/01/18 09:28 09:33 Temperature Pulse Rate 80 85 Respiratory Rate Blood Pressure Blood Pressure [Left] O2 Sat by Pulse 97 99 Oximetry - Exam Cardiovascular: Normal S1, Normal S2 Lungs: Clear to auscultation Vulva: both: normal FHR: category 1 Uterine Contraction Monitor Mode: External Uterine Contraction Pattern: Absent - Labs Labs: Abnormal Labs 10/27/18 10/28/18 10/31/18 00:38 12:56 Unknown MCHC 35 H [place] % (Auto) 8.0 H Eos % (Auto) 6.8 H Eos # 0.5 H Creatinine 0.4 L Magnesium AST ALT Lactate Dehydrogenase Urine pH 8.0 H 10/31/18 11/01/18 Unknown 06:59 MCHC [place] % (Auto) Eos % (Auto) Eos # Creatinine 0.5 L Magnesium 5.30 H AST 97 H ALT 5 L Lactate Dehydrogenase 1222 H Urine pH Laboratory Results - last 24 hr 10/31/18 10/31/18 10/31/18 19:40 19:40 Unknown WBC 7.3 RBC 4.15 Hgb 12.6 Hct 37.8 MCV 91 MCH 30 MCHC 33 RDW 14.1 Plt Count 187 Creatinine Estimated GFR Uric Acid Magnesium AST ALT Lactate Dehydrogenase Urine Color Straw Urine Turbidity Clear Urine pH 8.0 H Ur Specific [place] 1.010 Urine Protein <15 mg/dl Urine Glucose (UA) Neg Urine Ketones Neg Urine Blood Sm Urine Nitrite Neg Urine Bilirubin Neg Urine Urobilinogen < 2.0 Ur Leukocyte Esterase Neg Urine WBC (Auto) 1.0 Urine RBC (Auto) 5.0 U Epithel Cells (Auto) < 1.0 Urine Mucus Few Blood Type B POSITIVE Antibody Screen TNR KADI Antibody Screen Negative 10/31/18 11/01/18 Unknown 06:59 WBC RBC Hgb Hct MCV MCH MCHC RDW Plt Count Creatinine 0.5 L Estimated GFR > 60 Uric Acid 4.3 Magnesium 5.30 H AST 97 H ALT 5 L Lactate Dehydrogenase 1222 H Urine Color Urine Turbidity Urine pH Ur Specific [place] Urine Protein Urine Glucose (UA) Urine Ketones Urine Blood Urine Nitrite Urine Bilirubin Urine Urobilinogen Ur Leukocyte Esterase Urine WBC (Auto) Urine RBC (Auto) U Epithel Cells (Auto) Urine Mucus Blood Type Antibody Screen KADI Antibody Screen - Results US- obstetric: report reviewed
[2018-11-01] MEDS ORDERED: SUBLIMAZE ONE ×3 (10:16→12:32)
[2018-11-01] MEDS ORDERED: ZOFRAN IV PRN ×2 (10:27→13:41)
[2018-11-01] MEDS ORDERED: NARCAN 0.4 MG/1 ML IV PRN ×2 (10:27→13:41)
[2018-11-01] MEDS ORDERED: NEO SYNEPHRINE/NS Syringe(OR USE) IV ONE (10:59)
[2018-11-01] MEDS ORDERED: SODIUM CHLORIDE FLUSH SYRINGE 10 ML IV NR ×2 (11:00→14:00)
[2018-11-01] MEDS ORDERED: BICITRA PO ONE (11:00)
[2018-11-01] MEDS ORDERED: PEPCID IV ONE (11:00)
[2018-11-01] MEDS ORDERED: ANCEF/STERILE WATER 2 GM/20 ML 2 GM/20 ML SYRINGE IV NR (11:00)
[2018-11-01] MEDS ORDERED: REGLAN IV ONE (11:00)
[2018-11-01] MEDS ORDERED: LACTATED RINGERS 1,000 ML IV SCH (11:00)
[2018-11-01] MEDS ORDERED: PITOCin/NS 20 UNIT/1000ML DRIP 20 UNITS/1,000 ML BAG IV SCH ×2 (11:00→14:00)
[2018-11-01] MEDS ORDERED: WATER FOR IRRIG STERILE IR ONE (11:45)
[2018-11-01] MEDS ORDERED: NACL 0.9% IR ONE (11:45)
[2018-11-01] MEDS ORDERED: VERSED ONE (12:46)
[2018-11-01] MEDS ORDERED: DIPRIVAN 10 MG/ML IV ONE ×2 (12:58→13:19)
[2018-11-01 13:24] LABS: Hematocrit 33.5 % (30.3-42.9); Hemoglobin 11.4 gm/dl (10.1-14.3); Mean Corpuscular HGB Conc 34 % (30-34); Mean Corpuscular Volume 90 fl (79-97); Platelet Count 176 K/mm3 (140-440); Red Blood Count 3.72 M/mm3 (3.65-5.03); Red Cell Distribution Width 13.9 % (13.2-15.2)
[2018-11-01] MEDS ORDERED: ANUCORT-HC PR PRN (13:41)
[2018-11-01] MEDS ORDERED: TORADOL IV PRN ×2 (13:41)
[2018-11-01] MEDS ORDERED: MYLICON PO PRN (13:41)
[2018-11-01] MEDS ORDERED: TYLENOL PO PRN (13:41)
[2018-11-01] MEDS ORDERED: TUCKS PAD TP PRN (13:41)
[2018-11-01] MEDS ORDERED: LANSINOH TP PRN (13:41)
[2018-11-01] MEDS ORDERED: SENOKOT PO PRN (13:41)
[2018-11-01] MEDS ORDERED: MILK OF MAGNESIA PO PRN (13:41)
[2018-11-01] MEDS ORDERED: PHENERGAN PR PRN (13:41)
--- NOTE | 2018-11-01 13:53 | Operative Report ---
Operative Report Operative Report: Preoperative diagnosis 1. SIUP at 35 weeks and 6 days gestation not in labor. 2. Oligohydramnios. 3. IUGR 4. Preeclampsia. 5. Previous C/section. Postoperative diagnosis: Same. Procedure: Repeat low-transverse section. Surgeon: Dr. Calderon Professor Of Sociology: none Anesthesia: spinal IVF: RL 1.8 liters EBL: 1000 cc Urine: 700 cc clear Complications: none Intraoperative findings: 1. A male infant found in an CAN position, delivered at 11:53 AM, Apgars 9 at 1 minute and 9 at 5 minutes, weight 5 lbs. 2. Normal fallopian tubes and ovaries bilaterally. Procedure details: Risks, benefits, and alternatives of the procedure were discussed in detail with the patient which included but not limited to the risk of infection, hemorrhage requiring blood transfusion, injury to the bowel or bladder and blood vessels. The patient expressed understanding, her questions were answered, and she gave informed consent. The patient was taken to the operating room with an IV fluid infusing Ringers lactate. In the operating room, She was placed in a sitting position and given spinal anesthesia. Then, she was placed in a dorsal supine position with a leftward tilt. Moore catheter in Venodyne boots were placed. The abdomen was washed and she was prepared and draped in usual sterile fashion. After conf irming adequate anesthesia, the Pfannenstiel skin incision was made in the lower abdomen about 2 cm above the pubic symphysis using the scalpel. This incision was carried down to the underlying fascia using the Bovie. The fascia was opened bilaterally in a curvilinear fashion using the Bovie. 2 straight Kocker clamps were used to grasp the upper edge of the fascia from which the underlying rectus abdominis muscles was dissected off using the Bovie. A similar procedure was done with the lower edge of the fascia to dissect the underlying rectus abdominis muscle. The muscle was bluntly from the midline by pulling. The parietal peritoneum was grasped with 2 hemostat clamps and entered sharply using Metzenbaum scissors. A quick survey of the anatomy revealed a gravid uterus, normal fallopian tubes and ovaries bilaterally. A bladder flap was created. Donaldo'O retractor was placed in the incision for proper visualization. A low transverse incision was made in the lower uterine segment using the scalpel and extended bilaterally in a curvilinear fashion using bandage scissors. There was scant amount of clear amniotic fluid. The was found in an CAN position, the head was delivered atraumatically followed by the delivery of the shoulders and the rest of the body at 11:53 AM. The cord was clamped 2 and cut and the was handed off to the waiting resident assistant. The was a male, Apgars were 8 at 1 minute and 9 at 5 minutes, weight was 5 pounds. Cord blood was collected. The placenta was delivered manually and it was complete with a three-vessel cord. The uterine cavity was cleaned of clots and debris using dry lap sponges. The uterine incision was repaired in a running locked fashion using 0 Vicryl sutures. A second layer of imbrication w as placed. The gutters were cleaned of clots and debris using dry lap sponges. After confirming adequate hemostasis, the instruments were removed from the abdominal cavity. The rectus muscle was reapproximated in an interrupted fashion using 0 Vicryl sutures. The fascia was closed in a running fashion using 0 Vicryl sutures. The subcutaneous adipose layer was closed in a subcutaneous fashion using 2 chromic suture. The skin was closed with paco. Sterile dressing was placed. The counts of laps, needles, sponges, and instruments were correct 2. The patient tolerated the procedure well, she was taken to the recovery room in a stable condition.
--- NOTE | 2018-11-01 14:08 | Post Anesthesia Evaluation ---
- Post Anesthesia Evaluation Patient Participated: Yes Airway Patent: Yes Stable Respiratory Function: Yes Nausea/Vomiting: No Temp > 96.8F: Yes Pain Manageable: Yes (5/10 - Orders in place) Adequeate Hydration: Yes Anesthesia Complications: No Block Receding Appropriately: Yes Patient on Ventilator: No Other Comments: Explained to patient expected regression of block and pain managment post c section. Patient verbalizes understanding. Pain control on floor to be handled by OBGYN. Pain currently 5/10 with post op orders in place .
[2018-11-01] MEDS: DILAUDID IV PRN ×4 (14:29→16:37)
[2018-11-01] MEDS: MORPHINE IV PRN ×2 (16:54→20:35)
[2018-11-01] MEDS: AUGMENTIN 875 MG PO SCH ×2 (22:10)
[2018-11-01] MEDS ORDERED: PHENERGAN ONE (23:09)
[2018-11-02] MEDS: MORPHINE IV PRN ×2 (00:15→04:38)
[2018-11-02] MEDS: MAGNESIUM SULFATE 40GM/1000ML 40 GM/1,000 ML BAG IV SCH (00:24)
[2018-11-02 05:42] LABS: Hematocrit 31.9 % (30.3-42.9)
--- NOTE | 2018-11-02 09:33 | Progress Note ---
Assessment and Plan - Patient Problems (1) Status post Onset Date: 11/02/18 Current Visit: Yes Status: Resolved Plan to address problem: A: S/P Repeat C Section - POD #1 Preeclampsia - improved on IV Magnesium sulfate P: Will transfer to floor after d/c IV Magnesium sulfate (2) Pre-eclampsia Onset Date: 11/02/18 Current Visit: Yes Status: Resolved Qualifiers: Trimester: third trimester Qualified Code(s): O14.93 - Unspecified pre- eclampsia, third trimester Subjective - Subjective Date of service: 11/02/18 Principal diagnosis: s/p Repeat C Section - POD #1 Interval history: Pt is currently sleeping. No complaints. [place]: doing well Objective - Vital Signs Latest vital signs: Vital Signs Temp Pulse Resp BP BP Pulse Ox 11/02/18 09:31 94 H 92 11/02/18 09:30 89 95 11/02/18 09:25 89 96 11/02/18 09:20 95 H 95 11/02/18 09:19 101 H 94 11/02/18 09:15 102 H 88 11/02/18 09:14 93 H 92 11/02/18 09:10 88 97 11/02/18 09:05 89 97 11/02/18 09:00 85 97 11/02/18 08:55 88 97 11/02/18 08:50 89 97 11/02/18 08:45 91 H 97 11/02/18 08:40 94 H 97 11/02/18 08:37 93 H 115/80 11/02/18 08:35 92 H 98 11/02/18 08:30 92 H 97 11/02/18 08:25 95 H 98 11/02/18 08:20 95 H 97 11/02/18 08:15 102 H 98 11/02/18 08:10 103 H 97 11/02/18 08:05 95 H 97 11/02/18 08:00 105 H 98 11/02/18 07:55 99 H 97 11/02/18 07:50 97 H 97 11/02/18 07:45 97 H 97 11/02/18 07:40 96 H 97 11/02/18 07:37 96 H 116/87 11/02/18 07:35 96 H 97 11/02/18 07:30 97 H 97 11/02/18 07:25 96 H 97 11/02/18 07:20 97 H 97 11/02/18 07:15 95 H 98 11/02/18 07:10 96 H 98 11/02/18 07:05 98 H 97 11/02/18 07:00 99 H 97 11/02/18 06:55 97 H 97 11/02/18 06:50 98 H 97 11/02/18 06:45 97 H 97 11/02/18 06:40 96 H 98 11/02/18 06:37 93 H 121/85 11/02/18 06:35 96 H 97 11/02/18 06:30 94 H 98 11/02/18 06:25 94 H 98 11/02/18 06:20 98 H 97 11/02/18 06:15 97 H 97 11/02/18 06:10 98 H 97 11/02/18 06:05 98 H 96 11/02/18 06:00 98 H 96 11/02/18 05:55 98 H 97 11/02/18 05:50 98 H 96 11/02/18 05:45 98 H 96 11/02/18 05:40 98 H 97 11/02/18 05:37 98 H 120/71 11/02/18 05:35 100 H 97 11/02/18 05:30 99 H 96 11/02/18 05:25 96 H 96 11/02/18 05:20 97 H 97 11/02/18 05:16 110 H 83 L 11/02/18 05:15 102 H 99 11/02/18 05:10 98 H 99 11/02/18 05:05 100 H 99 11/02/18 05:00 97 H 99 11/02/18 04:55 97 H 99 11/02/18 04:50 98 H 99 11/02/18 04:45 98 H 99 11/02/18 04:40 100 H 99 11/02/18 04:37 96 H 115/82 11/02/18 04:35 92 H 99 11/02/18 04:30 95 H 99 11/02/18 04:25 98 H 98 11/02/18 04:20 99 H 95 11/02/18 04:15 106 H 95 11/02/18 04:10 93 H 97 11/02/18 04:05 92 H 96 11/02/18 04:00 93 H 96 11/02/18 03:55 93 H 97 11/02/18 03:50 93 H 98 11/02/18 03:45 98 H 97 11/02/18 03:40 92 H 97 11/02/18 03:37 91 H 108/73 11/02/18 03:35 89 97 11/02/18 03:30 90 96 11/02/18 03:25 92 H 97 11/02/18 03:20 102 H 97 11/02/18 03:15 91 H 97 11/02/18 03:10 90 97 11/02/18 03:05 92 H 98 11/02/18 03:00 90 97 11/02/18 02:55 91 H 97 11/02/18 02:50 94 H 97 11/02/18 02:45 92 H 97 11/02/18 02:40 92 H 98 11/02/18 02:37 92 H 114/90 11/02/18 02:35 89 97 11/02/18 02:30 93 H 98 11/02/18 02:25 92 H 98 11/02/18 02:20 93 H 99 11/02/18 02:15 94 H 99 11/02/18 02:10 94 H 98 11/02/18 02:05 94 H 98 11/02/18 02:00 94 H 98 11/02/18 01:55 93 H 98 11/02/18 01:50 91 H 98 11/02/18 01:45 93 H 98 11/02/18 01:40 92 H 98 11/02/18 01:37 90 121/88 11/02/18 01:35 96 H 97 11/02/18 01:30 93 H 98 11/02/18 01:25 95 H 98 11/02/18 01:20 96 H 98 11/02/18 01:15 94 H 98 11/02/18 01:10 94 H 98 11/02/18 01:05 93 H 98 11/02/18 01:00 93 H 98 11/02/18 00:55 94 H 98 11/02/18 00:50 100 H 98 11/02/18 00:45 97 H 98 11/02/18 00:40 95 H 98 11/02/18 00:37 97 H 117/88 11/02/18 00:35 94 H 97 05/27/19 00:30 95 H 98 11/02/18 00:25 98 H 97 11/02/18 00:20 105 H 97 11/02/18 00:15 95 H 98 11/02/18 00:10 93 H 97 11/02/18 00:05 92 H 98 11/02/18 00:00 92 H 97 11/01/18 23:55 93 H 98 11/01/18 23:50 92 H 98 11/01/18 23:45 90 98 11/01/18 23:40 93 H 98 11/01/18 23:37 97 H 129/93 11/01/18 23:35 93 H 98 11/01/18 23:30 89 97 11/01/18 23:25 88 98 11/01/18 23:20 90 97 11/01/18 23:15 88 97 11/01/18 23:10 86 97 11/01/18 23:05 90 97 11/01/18 23:00 91 H 98 11/01/18 22:55 89 97 11/01/18 22:50 87 98 11/01/18 22:45 89 98 11/01/18 22:40 89 97 11/01/18 22:37 105 H 120/90 11/01/18 22:35 91 H 98 11/01/18 22:30 91 H 97 11/01/18 22:25 91 H 97 11/01/18 22:20 89 97 11/01/18 22:15 89 98 11/01/18 22:10 97 H 97 11/01/18 22:05 92 H 98 11/01/18 22:00 90 97 11/01/18 21:55 90 97 11/01/18 21:50 89 97 11/01/18 21:45 89 97 11/01/18 21:40 89 97 11/01/18 21:37 90 123/86 05 21:35 88 97 11/01/18 21:30 97 H 97 11/01/18 21:25 91 H 97 11/01/18 21:20 93 H 98 11/01/18 21:15 89 97 11/01/18 21:10 91 H 97 11/01/18 21:05 89 96 11/01/18 21:00 91 H 97 11/01/18 20:55 92 H 97 05/26/19 20:50 89 97 11/01/18 20:45 89 97 11/01/18 20:40 91 H 97 11/01/18 20:35 91 H 110/73 98 11/01/18 20:30 90 97 11/01/18 20:25 86 98 11/01/18 20:20 88 97 11/01/18 20:15 88 97 11/01/18 20:10 101 H 97 11/01/18 20:05 89 121/90 98 11/01/18 20:00 85 97 11/01/18 19:55 88 97 11/01/18 19:50 96 H 98 11/01/18 19:45 90 97 11/01/18 19:40 89 97 11/01/18 19:35 92 H 133/93 97 11/01/18 19:30 86 98 11/01/18 19:25 89 97 11/01/18 19:20 89 97 11/01/18 19:15 90 98 11/01/18 19:10 89 97 11/01/18 19:05 95 H 140/93 97 11/01/18 19:00 92 H 98 11/01/18 18:55 87 97 11/01/18 18:50 92 H 96 11/01/18 18:45 95 H 98 11/01/18 18:40 83 98 11/01/18 18:35 90 112/78 98 11/01/18 18:30 89 98 11/01/18 18:25 99 H 98 11/01/18 18:20 95 H 98 11/01/18 18:15 92 H 99 11/01/18 18:10 83 99 11/01/18 18:05 97 H 125/82 99 11/01/18 18:00 90 18 99 11/01/18 17:55 98 H 97 11/01/18 17:50 88 95 11/01/18 17:45 90 96 11/01/18 17:40 91 H 96 11/01/18 17:35 93 H 132/91 96 11/01/18 17:30 91 H 96 11/01/18 17:25 94 H 96 11/01/18 17:20 91 H 97 11/01/18 17:15 91 H 97 11/01/18 17:10 90 98 11/01/18 17:05 90 137/89 96 11/01/18 17:00 90 18 97 11/01/18 16:55 93 H 96 11/01/18 16:54 20 11/01/18 16:50 94 H 98 11/01/18 16:45 93 H 97 11/01/18 16:40 92 H 96 11/01/18 16:37 18 11/01/18 16:35 89 98 11/01/18 16:30 89 98 11/01/18 16:26 88 113/71 11/01/18 16:25 90 97 11/01/18 16:20 83 97 11/01/18 16:15 86 18 97 11/01/18 16:10 96 H 133/92 97 11/01/18 16:05 96 H 97 11/01/18 16:00 99 H 18 98 11/01/18 15:56 92 H 129/91 11/01/18 15:55 84 97 11/01/18 15:50 83 97 11/01/18 15:49 98.1 F 78 20 128/72 100 11/01/18 15:45 85 97 11/01/18 15:15 97.5 F L 86 18 114/78 96 11/01/18 15:00 82 18 120/72 100 11/01/18 14:45 88 16 124/84 100 11/01/18 14:30 82 16 117/82 100 11/01/18 14:15 82 18 120/82 100 11/01/18 14:10 78 18 114/76 100 11/01/18 14:05 80 17 125/85 100 11/01/18 14:00 98.1 F 84 18 117/86 100 11/01/18 10:48 91 H 124/84 98 11/01/18 10:43 97 H 98 11/01/18 10:38 99 H 98 11/01/18 10:33 91 H 99 11/01/18 10:28 85 98 11/01/18 10:23 88 99 11/01/18 10:18 84 121/78 99 11/01/18 10:13 86 97 11/01/18 10:08 86 98 11/01/18 10:03 84 97 11/01/18 09:58 84 97 11/01/18 09:53 82 98 11/01/18 09:48 98 F 87 16 97 11/01/18 09:47 89 121/77 11/01/18 09:43 84 98 11/01/18 09:38 84 98 11/01/18 09:33 85 99 Intake and Output 11/01/18 11/02/18 11/02/18 22:59 06:59 14:59 Intake Total 1762.5 502.5 Output Total 1300 1000 350 Balance 462.5 -497.5 -350 Intake: IV 1762.5 502.5 Lactated Ringers 1,000 ml 1000 @ 125 mls/hr IV DIRECT LEIGHANN Rx#:[id number] MAGNESIUM SULFATE 40GM/ 502.5 1000ML 40 gm In 1,000 ml @ 2 GM/HR 50 mls/hr IV DIRECT LEIGHANN Rx#:[id number] PITOCin/NS 20 UNIT/1000ML 562.5 DRIP 20 units In 1,000 ml @ 250 mls/hr IV DIRECT LEIGHANN Rx#:[id number] Output: Urine 1300 1000 350 Indwelling Catheter 900 1000 350 Uretheral ([place]) 400 Other: Total, Output Amount 300 400 350 - Exam Cardiovascular: Present: Regular rate Lungs: Present: Clear to auscultation Abdomen: Present: normal appearance, soft - Labs Labs: Laboratory Tests 10/27/18 10/27/18 10/28/18 00:38 00:38 12:56 WBC 7.0 4.8 RBC 4.07 3.95 Hgb 12.8 12.1 Hct 36.7 36.1 MCV 90 91 MCH 32 31 MCHC 35 H 34 RDW 14.1 13.8 Plt Count 197 175 Lymph % (Auto) 26.7 [place] % (Auto) 8.0 H Eos % (Auto) 6.8 H Baso % (Auto) 0.6 Lymph # 1.9 [place] # 0.6 Eos # 0.5 H Baso # 0.0 Seg Neutrophils % 57.9 Seg Neutrophils # 4.0 Creatinine Estimated GFR Uric Acid Magnesium AST ALT Lactate Dehydrogenase Urine Color Urine Turbidity Urine pH Ur Specific [place] Urine Protein Urine Glucose (UA) Urine Ketones Urine Blood Urine Nitrite Urine Bilirubin Urine Urobilinogen Ur Leukocyte Esterase Urine WBC (Auto) Urine RBC (Auto) U Epithel Cells (Auto) Urine Mucus Blood Type B POSITIVE Antibody Screen Negative [facility]ADI Antibody Screen 10/28/18 10/29/1810/31/19 12:56 09:15 19:40 WBC 7.3 RBC 4.15 Hgb 12.6 Hct 37.8 MCV 91 MCH 30 MCHC 33 RDW 14.1 Plt Count 187 Lymph % (Auto) [place] % (Auto) Eos % (Auto) Baso % (Auto) Lymph # [place] # Eos # Baso # Seg Neutrophils % Seg Neutrophils # Creatinine 0.4 L Estimated GFR > 60 Uric Acid 4.6 Magnesium AST 13 ALT 8 Lactate Dehydrogenase 161 Urine Color Yellow Urine Turbidity Clear Urine pH 7.0 Ur Specific [place] 1.006 Urine Protein <15 mg/dl Urine Glucose (UA) Neg Urine Ketones 20 Urine Blood Neg Urine Nitrite Neg Urine Bilirubin Neg Urine Urobilinogen < 2.0 Ur Leukocyte Esterase Tr Urine WBC (Auto) < 1.0 Urine RBC (Auto) 2.0 U Epithel Cells (Auto) < 1.0 Urine Mucus Few Blood Type Antibody Screen KADI Antibody Screen 10/31/18 10/31/18 10/31/18 19:40 Unknown Unknown WBC RBC Hgb Hct MCV MCH MCHC RDW Plt Count Lymph % (Auto) [place] % (Auto) Eos % (Auto) Baso % (Auto) Lymph # [place] # Eos # Baso # Seg Neutrophils % Seg Neutrophils # Creatinine 0.5 L Estimated GFR > 60 Uric Acid 4.3 Magnesium AST 97 H ALT 5 L Lactate Dehydrogenase 1222 H Urine Color Straw Urine Turbidity Clear Urine pH 8.0 H Ur Specific [place] 1.010 Urine Protein <15 mg/dl Urine Glucose (UA) Neg Urine Ketones Neg Urine Blood Sm Urine Nitrite Neg Urine Bilirubin Neg Urine Urobilinogen < 2.0 Ur Leukocyte Esterase Neg Urine WBC (Auto) 1.0 Urine RBC (Auto) 5.0 U Epithel Cells (Auto) < 1.0 Urine Mucus Few Blood Type B POSITIVE Antibody Screen TNR KADI Antibody Screen Negative 11/01/18 11/01/18 11/02/18 06:59 13:15 05:11 WBC 6.4 RBC 3.72 Hgb 11.4 11.0 Hct 33.5 31.9 MCV 90 MCH 31 MCHC 34 RDW 13.9 Plt Count 176 Lymph % (Auto) [place] % (Auto) Eos % (Auto) Baso % (Auto) Lymph # [place] # Eos # Baso # Seg Neutrophils % Seg Neutrophils # Creatinine Estimated GFR Uric Acid Magnesium 5.30 H AST ALT Lactate Dehydrogenase Urine Color Urine Turbidity Urine pH Ur Specific [place] Urine Protein Urine Glucose (UA) Urine Ketones Urine Blood Urine Nitrite Urine Bilirubin Urine Urobilinogen Ur Leukocyte Esterase Urine WBC (Auto) Urine RBC (Auto) U Epithel Cells (Auto) Urine Mucus Blood Type Antibody Screen KADI Antibody Screen
[2018-11-02] MEDS: AUGMENTIN 875 MG PO SCH ×2 (12:53→21:45)
[2018-11-02] MEDS: IBUPROFEN PO PRN (17:20)
[2018-11-02] MEDS: PERCOCET 5/325 PO PRN (17:21)
[2018-11-02] MEDS: COLACE PO PRN (21:51)
[2018-11-03] MEDS: IBUPROFEN PO PRN ×4 (00:17→22:02)
[2018-11-03] MEDS: PERCOCET 5/325 PO PRN ×5 (00:17→22:02)
[2018-11-03] MEDS: COLACE PO PRN ×2 (09:12→22:02)
[2018-11-03] MEDS: PRENATAL VITAMIN PO SCH ×3 (09:18→10:00)
[2018-11-03] MEDS: FEOSOL PO SCH (10:00)
--- NOTE | 2018-11-03 10:16 | Progress Note ---
Assessment and Plan - Patient Problems (1) Status post Onset Date: 11/02/18 Current Visit: Yes Status: Resolved Plan to address problem: A: S/P Repeat C Section - POD #2 Preeclampsia - resolved P: May go home tomorrow. (2) Pre-eclampsia Onset Date: 11/02/18 Current Visit: Yes Status: Resolved Qualifiers: Trimester: third trimester Qualified Code(s): O14.93 - Unspecified pre- eclampsia, third trimester Subjective - Subjective Date of service: 11/03/18 Principal diagnosis: s/p Repeat C Section - POD #2 Interval history: Pt is feeling well without complaints. Bleeding improved, and she is tolerating a reg diet without nausea or vomiting, ambulating and voiding without difficulty. She denies headaches or blurred vision. Patient reports: appetite normal, voiding normally, pain well controlled, flatus, ambulating normally, no dizzy ambulation, no nauseated : doing well, in NICU Objective - Vital Signs Latest vital signs: Vital Signs Temp Pulse Resp BP BP Pulse Ox 11/03/18 07:58 97.9 F 82 16 109/73 94 11/03/18 00:34 98.0 F 18 120/81 11/02/18 17:21 20 11/02/18 17:20 20 11/02/18 15:30 99.1 F 102 H 18 128/93 96 11/02/18 15:05 101 H 98 11/02/18 15:00 98 H 99 11/02/18 14:55 107 H 99 11/02/18 14:50 96 H 98 11/02/18 14:45 92 H 98 11/02/18 14:40 95 H 98 11/02/18 14:37 98 H 113/69 11/02/18 14:35 99 H 99 11/02/18 14:30 95 H 98 11/02/18 14:25 97 H 98 11/02/18 14:20 103 H 98 11/02/18 14:15 99 H 98 11/02/18 14:10 102 H 99 11/02/18 14:05 103 H 98 11/02/18 14:00 109 H 97 11/02/18 13:55 111 H 97 11/02/18 13:50 101 H 96 11/02/18 13:45 105 H 97 11/02/18 13:40 115 H 97 11/02/18 13:37 109 H 111/78 11/02/18 13:35 106 H 96 11/02/18 13:30 103 H 96 11/02/18 13:25 105 H 97 11/02/18 13:20 107 H 97 11/02/18 13:15 109 H 97 11/02/18 13:10 101 H 97 11/02/18 13:05 105 H 97 11/02/18 13:00 109 H 97 11/02/18 12:55 102 H 98 11/02/18 12:52 93 H 92 11/02/18 12:50 102 H 97 11/02/18 12:47 74 93 11/02/18 12:45 95 H 97 11/02/18 12:40 97 H 97 11/02/18 12:37 104 H 111/71 11/02/18 12:35 100 H 97 11/02/18 12:30 94 H 97 11/02/18 12:25 94 H 97 11/02/18 12:20 98 H 97 11/02/18 12:15 99 H 99 11/02/18 12:10 92 H 97 11/02/18 12:05 95 H 97 11/02/18 12:00 89 96 11/02/18 11:55 92 H 97 11/02/18 11:50 90 97 11/02/18 11:45 89 96 11/02/18 11:40 90 96 11/02/18 11:37 89 108/72 11/02/18 11:35 92 H 96 11/02/18 11:30 91 H 96 11/02/18 11:25 93 H 96 11/02/18 11:20 93 H 97 11/02/18 11:15 98 H 97 11/02/18 11:10 98 H 97 11/02/18 11:05 101 H 96 11/02/18 11:00 97 H 95 11/02/18 10:55 98 H 97 11/02/18 10:50 94 H 96 11/02/18 10:45 92 H 97 11/02/18 10:40 107 H 97 11/02/18 10:37 93 H 121/75 11/02/18 10:35 96 H 96 11/02/18 10:30 87 96 11/02/18 10:25 87 96 11/02/18 10:20 89 96 Intake and Output 11/02/18 11/03/18 11/03/18 22:59 06:59 14:59 Intake Total 600 120 Output Total 1825 800 Balance -1825 -200 120 Intake: Oral 120 Intake, Free Water 600 Output: Urine 1825 800 Uretheral ([place]) 725 Void 1100 800 Other: Total, Intake Amount 120 Total, Output Amount 800 800 # Voids Void 1 1 1 - Exam Breasts: Present: deferred Abdomen: Present: normal appearance, soft Uterus: Present: normal, firm, fundal height below umbilicus Extremities: Present: normal Incision: Present: normal, dry, intact
[2018-11-03] MEDS: AUGMENTIN 875 MG PO SCH ×3 (11:30→22:02)
--- NOTE | 2018-11-03 15:46 | Discharge Summary ---
Providers - Providers Date of Admission: 10/28/18 12:33 Date of discharge: 11/04/18 Attending physician: LAWSON LR 10/27/18 18:08 Consult to Physician [CONS] Routine Comment: Consulting Provider: JUANITA MOYA Physician Instructions: 35 weeks with history of fall, oligohydramnios Reason For Exam: oligohydramnios Primary care physician: LAWSON LR Hospitalization Reason for admission: labor, other (preeclampsia) Delivery: Procedure: section, repeat low transverse Episiotomy: none Laceration: none Incision: normal, dry, intact Other procedures: none complications: none Discharge diagnosis: delivery baby: male Hospital course: Patient is a 32 year old black female , LMP , who presented to triage on 10/26/18 after she sustained a fall while attending an event with her family 2 days earlier (10/24/18). She denied any contractions, bleeding, fluid leakage. She reported good movement. Sonogram was done and showed an PAULINO of 3.2. tracing was CAT1. She is a patient of [facility] and was a late registrant to care 2 weeks ago. She had her first sonogram on 10/05/18 who gave her an EDC of 11/30/18. She was admitted for observation, given IV hydration. Repeat sonogram 24 hours later showed an PAULINO of 4.5. Exam: fundal height is 32 cm. Sonogram (10/28/18) showed an EFW of 1814 gms, PAULINO 5.3. Steroid for FLM completed. [facility] consult was done and agreed with inpatient management. They recommended that patient remains inpatient until PAULINO is >7. However, sono on 10/30/18 showed PAULINO of 2.3 and IUGR so she was dispositioned to be delivered by Repeat C Section. She underwent an uncomplicated C Section and started on IV Magnesium sulfate x 24 hrs. Her BP's remained stable without BP meds, and by POD #2 she was tolerating a reg diet without nausea or vomiting, ambulating and voiding without difficulty. She was therefore discharged to home on POD #3 in stable condition. Baby will remain in NICU. Condition at discharge: Good Disposition: DC-01 TO HOME OR SELFCARE - Discharge Diagnoses (1) Status post Status: Resolved (2) Pre-eclampsia Status: Resolved Qualifiers: Trimester: third trimester Qualified Code(s): O14.93 - Unspecified pre- eclampsia, third trimester Plan - Discharge Medications Prescriptions: Ferrous Sulfate [Feosol 325 MG tab] 325 mg PO BID #60 tablet Ibuprofen [Motrin 800 MG tab] 800 mg PO Q6H PRN #30 tablet PRN Reason: Pain, Mild (1-3) oxyCODONE /ACETAMINOPHEN [Percocet 5/325 mg] 1 tab PO Q6H PRN #30 tablet PRN Reason: Pain, Moderate (4-6) Vit-Fe Fumar-FA [ Vitamin] 1 each PO QDAY #30 tablet - Provider Discharge Summary Activity: routine, no sex for 6 weeks, no heavy lifting 4 weeks, no strenuous exercise Diet: routine Instructions: routine Additional instructions: [] Smoking cessation referral if applicable(refer to patient education folder for contact #) [] Refer to [facility] Booklet Call your doctor immediately for: * Fever > 100.5 * Heavy vaginal bleeding ( >1 pad per hour) * Severe persistent headache * Shortness of breath * Reddened, hot, painful area to leg or breast * Drainage or odor from incision. * Keep incision clean and dry at all times and follow doctor's instructions regarding bathing/showering Follow up in the office in 1 week for BP check - Follow up plan Follow up: LAWSON LR MD [Primary Care Provider] - 14 Days
[2018-11-04] MEDS: IBUPROFEN PO PRN ×2 (04:06→09:56)
[2018-11-04] MEDS: PERCOCET 5/325 PO PRN ×2 (04:08→09:57)
[2018-11-04] MEDS: FEOSOL PO SCH ×2 (07:39→09:52)
[2018-11-04] MEDS: PRENATAL VITAMIN PO SCH ×3 (07:40→09:54)
[2018-11-04] MEDS: AUGMENTIN 875 MG PO SCH ×3 (07:41→09:55)
[2018-11-04 08:44] VITALS: BP 129/91
[2018-11-04] MEDS: COLACE PO PRN (09:52)
[2018-11-04] MEDS ORDERED: PERCOCET 5/325 PO PRN (10:30)
== END 2018-11-04 17:10 | disposition home or self-care (01) | DRG 765 ==
LOC: EDSTATUS 17:33 → TRG 17:38 → LD 10-27 01:15 → TRG 10-27 01:16 → LD 10-28 12:33 → OB 11-02 15:35
PROVIDERS: ADMIT Obstetrics & Gynecology; ATTEND Obstetrics & Gynecology
PROC: 10D00Z1 Extraction of Products of Conception, Low, Open Approach (ICD-10-PCS; principal; 2018-11-01)
DX: O34.211 Maternal care for low transverse scar from previous cesarean delivery (principal); O60.14X0 Preterm labor third trimester with preterm delivery third trimester, not applicable or unspecified; O41.03X0 Oligohydramnios, third trimester, not applicable or unspecified; O14.94 Unspecified pre-eclampsia, complicating childbirth; O36.5930 Maternal care for other known or suspected poor fetal growth, third trimester, not applicable or unspecified; O13.4 Gestational [pregnancy-induced] hypertension without significant proteinuria, complicating childbirth; Z3A.35 35 weeks gestation of pregnancy; Z37.0 Single live birth
CPT/HCPCS: 36415; 76805; 76815; 76819; 76820; 81001; 82565; 83615; 83735; 84450; 84460; 84550; 85014; 85018; 85025; 85027; 86850; 86900; 86901; 88307; G0378; J0690; J0702; J1170; J1885; J2250; J2270; J2370; J2590; J2704; J2765; J3010; J3475; J7120; Q0169

== ENCOUNTER 2018-11-15 22:39 | Emergency (ER) | payer MEDICAID ==
[2018-11-15 23:22] LABS: Basophils % (Auto) 0.6 % (0.0-1.8); Eosinophils # (Auto) 0.1 K/mm3 (0.0-0.4); Hematocrit 33.2 % (30.3-42.9); Lymphocytes # (Auto) 0.8 K/mm3 (1.2-5.4); Lymphocytes % (Auto) 11.6 % (13.4-35.0); Mean Corpuscular HGB Conc 33 % (30-34); Mean Corpuscular Volume 91 fl (79-97); Monocytes # (Auto) 0.5 K/mm3 (0.0-0.8); Monocytes % (Auto) 7.3 % (0.0-7.3); Platelet Count 337 K/mm3 (140-440); Red Blood Count 3.66 M/mm3 (3.65-5.03); Red Cell Distribution Width 14.5 % (13.2-15.2)
[2018-11-15 23:38] LABS: Alanine Aminotransferase 20 units/L (7-56); Albumin 3.5 g/dL (3.9-5); BUN/Creatinine Ratio 26; Blood Urea Nitrogen 13 mg/dL (7-17); Calcium 9.6 mg/dL (8.4-10.2); Hemolysis Index 0
[2018-11-15] MEDS ORDERED: SUBLIMAZE IV ONE (23:41)
[2018-11-15] MEDS ORDERED: ZOFRAN IV ONE (23:41)
--- NOTE | 2018-11-15 23:46 | Emergency Department Report ---
HPI - General Chief Complaint: Abdominal Pain Time Seen by Provider: 11/15/18 23:30 - HPI HPI: Room 19 The patient is a 32-year-old female presenting with a chief complaint of lower abdominal pain. The patient is recently from performed 11/01/2018 for preeclampsia. The patient states today she developed lower abdominal pain at the surgical site in addition to bilateral flank pain. The patient admits to dysuria and hematuria. Patient missed a subjective fever but denies nausea or vomiting. Patient states for the past 2 days she's had bilateral lower extremity pain right greater than left. Patient reported having had some chest pain in the past. Patient currently gives her abdominal pain and flank pain score is 8-9/10. The patient is breast-feeding as well as feeding her baby formula. Patient advised to pump and dump her breast milk for 3 days prior to resuming breast-feeding after being administered IV contrast and narcotic pain medication in the ED today Location: [See above] Duration: [See above] Quality: [See above] Severity: [See above] Modifying factors: [see above] Context: [see above] Mode of transportation: [not driving] ED Past Medical Hx - Past Medical History Previous Medical History?: Yes Additional medical history: Fall during and had to have a csection. Original deliver date was 12/02 and had C section done 11/01. - Surgical History Past Surgical History?: Yes Additional Surgical History: x1 - Family History Family history: no significant - Social History Smoking Status: Never Smoker Substance Use Type: None - Medications Home Medications: Home Medications Medication Instructions Recorded Confirmed Last Taken Type Pnv No.121/Iron/Folic Acid 1 each PO DAILY #30 tablet 07/04/18 10/27/18 10/25/18 Rx [ Multivitamin Tablet] Ferrous Sulfate [Feosol 325 MG tab] 325 mg PO BID #60 tablet 11/03/18 Unknown Rx Ibuprofen [Motrin 800 MG tab] 800 mg PO Q6H PRN #30 tablet 11/03/18 Unknown Rx Vit-Fe Fumar-FA [ 1 each PO QDAY #30 tablet 11/03/18 Unknown Rx Vitamin] oxyCODONE /ACETAMINOPHEN [Percocet 1 tab PO Q6H PRN #30 tablet 11/03/18 Unknown Rx 5/325 mg] HYDROcodone/APAP 5-325 [[place] 1 - 2 each PO Q6HR PRN #14 tablet 11/16/18 Unknown Rx 5/325] Ibuprofen [Motrin 800 MG tab] 800 mg PO Q8HR PRN #20 tablet 11/16/18 Unknown Rx levoFLOXacin [Levaquin] 750 mg PO QDAY #10 tablet 11/16/18 Unknown Rx ED Review of Systems ROS: Stated complaint: POST OP PAIN Other details as noted in HPI Constitutional: fever (subjective) Eyes: denies: eye pain ENT: denies: throat pain Respiratory: denies: shortness of breath Cardiovascular: chest pain Endocrine: no symptoms reported Gastrointestinal: abdominal pain. denies: nausea, vomiting Genitourinary: dysuria, hematuria Musculoskeletal: back pain Neurological: denies: headache Physical Exam - Physical Exam Vital Signs: Vital Signs 11/15/18 22:53 Temperature 98.4 F Pulse Rate 98 H Respiratory 20 Rate Blood Pressure 122/85 O2 Sat by Pulse 98 Oximetry Physical Exam: GENERAL: The patient is well-developed well-nourished female lying on stretcher not appearing to be in acute distress. [] HEENT: Normocephalic. Atraumatic. Extraocular motions are intact. Patient has moist mucous membranes. NECK: Supple. Trachea midline CHEST/LUNGS: Clear to auscultation. There is no respiratory distress noted. HEART/CARDIOVASCULAR: Regular. There is no tachycardia. There is no gallop rub or murmur. ABDOMEN: Abdomen is soft, with tenderness in the lower pelvis at site. No active drainage visualized. No evidence of cellulitis. Patient has normal bowel sounds. There is no abdominal distention. SKIN: There is no evidence of cellulitis. There is no diaphoresis. NEURO: The patient is awake, alert, and oriented. The patient is cooperative. The patient has normal speech MUSCULOSKELETAL: There is bilateral CVA tenderness. There is no evidence of acute injury. ED Course Vital Signs 11/15/18 22:53 Temperature 98.4 F Pulse Rate 98 H Respiratory 20 Rate Blood Pressure 122/85 O2 Sat by Pulse 98 Oximetry ED Medical Decision Making - Lab Data Result diagrams: 11/15/18 23:08 11/15/18 23:08 - EKG Data -: EKG Interpreted by [facility] EKG shows normal: sinus rhythm Rate: normal - EKG Data When compared to previous EKG there are: previous EKG unavailable Interpretation: normal EKG - Radiology Data Radiology results: report reviewed (CT chest, CT abdomen and pelvis), image reviewed (CT chest, CT abdomen and pelvis) [address] [address] Cat Scan Report Signed Patient: BRIAN PEREZ MR#: [id number] : 1985 Acct:[id number] Age/Sex: 32 / F ADM Date: 11/15/18 Loc: ED Attending Dr: Ordering Physician: KARO SMITH MD Date of Service: 11/16/18 Procedure(s): CT angio chest Accession Number(s): [id number] cc: KARO SMITH MD PROCEDURE: CT ANGIO CHEST TECHNIQUE: Computerized tomographic angiography of the chest was performed after the IV injection of iodinated nonionic contrast including image processing. The image data was postprocessed using 2-dimensional multiplanar reformatted (MPR) and 3-dimensional (MIP and/or volume rendered) techniques. Automated exposure control, adjustment of mA and/or kV according to patient size, or iterative reconstruction dose optimization techniques were utilized. HISTORY: h/o CP. Recently COMPARISONS: None . FINDINGS: Heart and pericardium: Normal. Thoracic aorta: Normal. Pulmonary vasculature: No evidence of pulmonary arterial emboli. Lymph nodes: No enlarged thoracic lymph nodes. Lungs: The lungs are clear. No infiltrate, effusion or pneumothorax. The central airway is patent. Pleural space: No effusion, thickening, or pneumothorax. Musculoskeletal structures: No significant abnormality. Upper abdominal structures: No significant abnormality. IMPRESSION: Normal Examination . This document is electronically signed by Carol Sandoval DO., November 16 2018 03:58:35 AM ET Transcribed By: [facility] Dictated By: CAROL SANDOVAL MD Electronically Authenticated By: CAROL SANDOVAL MD Signed Date/Time: 11/16/18399 DD/ 9 TD/TT: 11/16/[address] [address] Cat Scan Report Signed Patient: BRIAN PEREZ MR#: [id number] : 1985 Acct:[id number] Age/Sex: 32 / F ADM Date: 11/15/18 Loc: ED Attending Dr: Ordering Physician: KARO SMITH MD Date of Service: 11/16/18 Procedure(s): CT abdomen pelvis w con Accession Number(s): [id number] cc: KARO SMITH MD PROCEDURE: CT ABDOMEN PELVIS W CON TECHNIQUE: Computerized axial tomography of the abdomen and pelvis was performed after the IV injection of iodinated nonionic contrast. CT DOSE LENGTH PRODUCT: mGycm HISTORY: lower abdominal pain. Status post C- section COMPARISONS: None . FINDINGS: Visualized lower thorax: No significant abnormality. Liver: Normal size and attenuation. Spleen: Normal size and attenuation. Gallbladder and biliary system: Normal. Pancreas: Normal. Adrenals: Normal. Kidneys: Normal. GI tract: The bowel loops are normal in caliber and course. The appendix is not enlarged. . Lymph nodes and mesentery: Normal. Vasculature: Normal.. Bladder: Normal. Reproductive organs: The uterus is enlarged compatible with status. Along the ventral incision site is a low-attenuation area measuring 2.7 x 2.4 x 5.2 cm. This may represent a small hematoma along the incision site. There is no evidence of pelvic abscess or free fluid otherwise.. Peritoneum: No free fluid. Musculoskeletal structures: No significant abnormality. Other: There are skin paco along the anterior wall of the lower pelvis related to surgery. . IMPRESSION: Enlarged uterus with low-attenuation area along the incision site with measurements as described. This may represent a small hematoma along the incision site. No evidence of free intraperitoneal fluid or pelvic abscess otherwise. No acute process in the abdomen and pelvis otherwise. This document is electronically signed by Luis Amado MD., November 16 2018 04:22:56 AM ET Transcribed By: RB Dictated By: LUIS AMADO MD Electronically Authenticated By: LUIS AMADO MD Signed Date/Time: 11/16/18424 DD/ 4 TD/TT: 11/16/18404 - Differential Diagnosis pyelonephritis, postop infection, PE, Critical care attestation.: If time is entered above; I have spent that time in minutes in the direct care of this critically ill patient, excluding procedure time. ED Disposition Clinical Impression: Acute abdominal pain, Pyelonephritis Disposition: - TO HOME OR SELFCARE Is pt being admited?: No Does the pt Need Aspirin: No Condition: Stable Instructions: Abdominal Pain (ED) Additional Instructions: You should not breast-feed your baby while taking the antibiotics and pain medication prescribed to you. You should pump and dump your breast milk while taking these medications and at least 3 days after taking her last dose before you resume breast feeding. Failure to do so may result in transmission of these medications and harm to your baby. Return to the emergency department immediately should you develop worsening symptoms, fever, inability to tolerate food or liquid or any other concerns. Prescriptions: levoFLOXacin [Levaquin] 750 mg PO QDAY #10 tablet Ibuprofen [Motrin 800 MG tab] 800 mg PO Q8HR PRN #20 tablet PRN Reason: Pain, Moderate (4-6) HYDROcodone/APAP 5-325 [[place] 5/325] 1 - 2 each PO Q6HR PRN #14 tablet PRN Reason: Pain Referrals: ABDI WHALENHOLDENHUDSON MD NORA [Primary Care Provider] - 3-5 Days LAWSON LR MD [Staff Physician] - 3-5 Days Time of Disposition: 04:31
[2018-11-16 00:01] LABS: Bilirubin,Urine NEG (Negative); Blood,Urine LG (Negative); Color,Urine Amber (Yellow); Mucus,Urine FEW /HPF; Urobilinogen,Urine < 2.0 mg/dL (<2.0)
[2018-11-16 00:02] LABS: RBC,Urine > 182.0 /HPF (0.0-6.0)
[2018-11-16 00:03] LABS: WBC,Urine > 182.0 /HPF (0.0-6.0)
[2018-11-16] MEDS ORDERED: LEVAQUIN PO ONE (00:34)
--- NOTE | 2018-11-16 04:00 | Cat Scan Report ---
PROCEDURE: CT ANGIO CHEST TECHNIQUE: Computerized tomographic angiography of the chest was performed after the IV injection of iodinated nonionic contrast including image processing. The image data was postprocessed using 2-di mensional multiplanar reformatted (MPR) and 3-dimensional (MIP and/or volume rendered) techniques. Au tomated exposure control, adjustment of mA and/or kV according to patient size, or iterative reconstr uction dose optimization techniques were utilized. HISTORY: h/o CP. Recently COMPARISONS: None . FINDINGS: Heart and pericardium: Normal. Thoracic aorta: Normal. Pulmonary vasculature: No evidence of pulmonary arterial emboli. Lymph nodes: No enlarged thoracic lymph nodes. Lungs: The lungs are clear. No infiltrate, effusion or pneumothorax. The central airway is patent. Pleural space: No effusion, thickening, or pneumothorax. Musculoskeletal structures: No significant abnormality. Upper abdominal structures: No significant abnormality. IMPRESSION: Normal Examination . This document is electronically signed by Carol Sandoval DO., November 16 2018 03:58:35 AM ET
--- NOTE | 2018-11-16 04:25 | Cat Scan Report ---
PROCEDURE: CT ABDOMEN PELVIS W CON TECHNIQUE: Computerized axial tomography of the abdomen and pelvis was performed after the IV inject ion of iodinated nonionic contrast. CT DOSE LENGTH PRODUCT: mGycm HISTORY: lower abdominal pain. Status post COMPARISONS: None . FINDINGS: Visualized lower thorax: No significant abnormality. Liver: Normal size and attenuation. Spleen: Normal size and attenuation. Gallbladder and biliary system: Normal. Pancreas: Normal. Adrenals: Normal. Kidneys: Normal. GI tract: The bowel loops are normal in caliber and course. The appendix is not enlarged. . Lymph nodes and mesentery: Normal. Vasculature: Normal.. Bladder: Normal. Reproductive organs: The uterus is enlarged compatible with status. Along the ventral C-se ction incision site is a low-attenuation area measuring 2.7 x 2.4 x 5.2 cm. This may represent a smal l hematoma along the incision site. There is no evidence of pelvic abscess or free fluid otherwise.. Peritoneum: No free fluid. Musculoskeletal structures: No significant abnormality. Other: There are skin paco along the anterior wall of the lower pelvis related to surge ry. . IMPRESSION: Enlarged uterus with low-attenuation area along the incision site with measurements as rosalind cribed. This may represent a small hematoma along the incision site. No evidence of free intraperitoneal fluid or pelvic abscess otherwise. No acute process in the abdomen and pelvis otherwise. This document is electronically signed by Deshawn Amado MD., November 16 2018 04:22:56 AM ET
[2018-11-16 04:59] VITALS: BP 122/76
== END 2018-11-16 05:23 | disposition home or self-care (01) ==
LOC: ED 22:39
DX: N12 Tubulo-interstitial nephritis, not specified as acute or chronic (principal); R07.89 Other chest pain; G89.18 Other acute postprocedural pain; M79.605 Pain in left leg; M79.604 Pain in right leg; Z98.890 Other specified postprocedural states
CPT/HCPCS: 36415; 71275; 74177; 80053; 81001; 84484; 84703; 85025; 87086; 93005; 93010; 96374; 96375; 99284; J2405; J3010; Q9967

== ENCOUNTER 2019-03-19 18:20 | Emergency (ER) | payer MEDICAID ==
[2019-03-19 18:44] VITALS: BP 119/84
--- NOTE | 2019-03-19 19:02 | Emergency Department Report ---
Chief Complaint: Dental/Oral Stated Complaint: GUM PROBLEM/FINGER Time Seen by Provider: 03/19/19 18:57 - HPI History of Present Illness: 33 year old female presents to the emergency room for piece of gum problem. In right fingernail. Patient denies any pain. She denies any gum swelling. - Exam Vital Signs: Vital Signs 03/19/19 18:41 Temperature 97.9 F Pulse Rate 94 H Respiratory 18 Rate Blood Pressure 119/84 O2 Sat by Pulse 98 Oximetry Physical Exam: Patient is alert and oriented 3 Mouth no gum swelling multiple teeth decayed to the gumline. #14 tooth pain has a small fleshy tissue hanging in between the decayed tooth. Skin: Left index finger nail is thick and discolored yellow MSE screening note: Focused history and physical exam performed. Due to findings the following was ordered: Discussed with patient that this can be followed up by her primary care provider and dentist. ED Disposition for MSE Clinical Impression: Gum lesion, Thick nail Disposition: Z- MED SCREENING EXAM-LEFT Is pt being admited?: No Does the pt Need Aspirin: No Condition: Stable Referrals: Your, provider [Other] - 3-5 Days
== END 2019-03-19 19:15 | disposition left against medical advice (07) ==
LOC: ED 18:20
DX: K06.2 Gingival and edentulous alveolar ridge lesions associated with trauma (principal)
CPT/HCPCS: 99282

== ENCOUNTER 2019-08-07 23:03 | Emergency (ER) | payer MEDICAID ==
[2019-08-07 23:18] VITALS: BP 138/87
--- NOTE | 2019-08-07 23:56 | Emergency Department Report ---
ED ENT HPI - General Chief complaint: Dental/Oral Stated complaint: THROAT PAIN Time Seen by Provider: 08/07/19 23:49 Source: patient Mode of arrival: Ambulatory Limitations: No Limitations - History of Present Illness Initial comments: Patient is a 33-year-old female that presents emergency room with complaints of tooth pain x3 days. Patient states the entire left side of her upper and lower jaw is hurting due to the toothache. Patient states she has a cracked tooth at the left upper. Patient dates the pain is a 10 out of 10. They states she is taking alternating Tylenol and ibuprofen with minimal relief. Patient states she is breast-feeding. Patient denies allergy to medications. Patient states the baby does not have any allergies to medications. Patient's baby is 9 months old. Patient states the pain is better with rest and worse with movement of her jaw, talking and eating. MD complaint: tooth pain -: Sudden Severity: severe Severity scale (0 -10): 10 Quality: stabbing Consistency: constant Improves with: NSAID, other medication, rest Worsens with: eating, movement Context- Dental: history of dental caries Associated Symptoms: gum swelling, toothache. denies: fever, cough, pain with swallowing, sore throat, tinnitus, hearing loss, discharge from ear, rhinorrhea - Related Data Previous Rx's Medication Instructions Recorded Last Taken Type Pnv No.121/Iron/Folic Acid 1 each PO DAILY #30 tablet 07/04/18 10/25/18 Rx [ Multivitamin Tablet] Ferrous Sulfate [Feosol 325 MG tab] 325 mg PO BID #60 tablet 11/03/18 Unknown Rx Ibuprofen [Motrin 800 MG tab] 800 mg PO Q6H PRN #30 tablet 11/03/18 Unknown Rx Vit-Fe Fumar-FA [ 1 each PO QDAY #30 tablet 11/03/18 Unknown Rx Vitamin] oxyCODONE /ACETAMINOPHEN [Percocet 1 tab PO Q6H PRN #30 tablet 11/03/18 Unknown Rx 5/325 mg] HYDROcodone/APAP 5-325 [[place] 1 - 2 each PO Q6HR PRN #14 tablet 11/16/18 Unknown Rx 5/325] Ibuprofen [Motrin 800 MG tab] 800 mg PO Q8HR PRN #20 tablet 11/16/18 Unknown Rx levoFLOXacin [Levaquin] 750 mg PO QDAY #10 tablet 11/16/18 Unknown Rx Acetaminophen/Codeine [Tylenol 1 tab PO Q4HR PRN #10 tablet 08/08/19 Unknown Rx /Codeine # 3 tab] Amoxicillin [Amoxicillin TAB] 875 mg PO BID 10 Days #20 tablet 08/08/19 Unknown Rx Allergies Allergy/AdvReac Type Severity Reaction Status Date / Time No Known Allergies Allergy Unverified 07/04/18 15:42 ED Dental HPI - General Chief complaint: Dental/Oral Stated complaint: THROAT PAIN Time Seen by Provider: 08/07/19 23:49 Source: patient Mode of arrival: Ambulatory Limitations: No Limitations - Related Data Previous Rx's Medication Instructions Recorded Last Taken Type Pnv No.121/Iron/Folic Acid 1 each PO DAILY #30 tablet 07/04/18 10/25/18 Rx [ Multivitamin Tablet] Ferrous Sulfate [Feosol 325 MG tab] 325 mg PO BID #60 tablet 11/03/18 Unknown Rx Ibuprofen [Motrin 800 MG tab] 800 mg PO Q6H PRN #30 tablet 11/03/18 Unknown Rx Vit-Fe Fumar-FA [ 1 each PO QDAY #30 tablet 11/03/18 Unknown Rx Vitamin] oxyCODONE /ACETAMINOPHEN [Percocet 1 tab PO Q6H PRN #30 tablet 11/03/18 Unknown Rx 5/325 mg] HYDROcodone/APAP 5-325 [[place] 1 - 2 each PO Q6HR PRN #14 tablet 11/16/18 Unknown Rx 5/325] Ibuprofen [Motrin 800 MG tab] 800 mg PO Q8HR PRN #20 tablet 11/16/18 Unknown Rx levoFLOXacin [Levaquin] 750 mg PO QDAY #10 tablet 11/16/18 Unknown Rx Acetaminophen/Codeine [Tylenol 1 tab PO Q4HR PRN #10 tablet 08/08/19 Unknown Rx /Codeine # 3 tab] Amoxicillin [Amoxicillin TAB] 875 mg PO BID 10 Days #20 tablet 08/08/19 Unknown Rx Allergies Allergy/AdvReac Type Severity Reaction Status Date / Time No Known Allergies Allergy Unverified 07/04/18 15:42 ED Review of Systems ROS: Stated complaint: THROAT PAIN Other details as noted in HPI Constitutional: denies: chills, fever Eyes: denies: eye pain, eye discharge, vision change ENT: denies: ear pain, throat pain Respiratory: denies: cough, shortness of breath, wheezing Cardiovascular: denies: chest pain, palpitations Endocrine: no symptoms reported Gastrointestinal: denies: abdominal pain, nausea, diarrhea Genitourinary: denies: urgency, dysuria, discharge Musculoskeletal: denies: back pain, joint swelling, arthralgia Skin: denies: rash, lesions Neurological: denies: headache, weakness, paresthesias Psychiatric: denies: anxiety, depression Hematological/Lymphatic: denies: easy bleeding, easy bruising ED Past Medical Hx - Past Medical History Previous Medical History?: No Additional medical history: Fall during and had to have a csection. Original deliver date was 12/02 and had C section done 11/01. - Surgical History Past Surgical History?: Yes Additional Surgical History: x1 - Family History Family history: no significant - Social History Smoking Status: Never Smoker Substance Use Type: None - Medications Home Medications: Home Medications Medication Instructions Recorded Confirmed Last Taken Type Pnv No.121/Iron/Folic Acid 1 each PO DAILY #30 tablet 07/04/18 10/27/18 10/25/18 Rx [ Multivitamin Tablet] Ferrous Sulfate [Feosol 325 MG tab] 325 mg PO BID #60 tablet 11/03/18 Unknown Rx Ibuprofen [Motrin 800 MG tab] 800 mg PO Q6H PRN #30 tablet 11/03/18 Unknown Rx Vit-Fe Fumar-FA [ 1 each PO QDAY #30 tablet 11/03/18 Unknown Rx Vitamin] oxyCODONE /ACETAMINOPHEN [Percocet 1 tab PO Q6H PRN #30 tablet 11/03/18 Unknown Rx 5/325 mg] HYDROcodone/APAP 5-325 [[place] 1 - 2 each PO Q6HR PRN #14 tablet 11/16/18 Unknown Rx 5/325] Ibuprofen [Motrin 800 MG tab] 800 mg PO Q8HR PRN #20 tablet 11/16/18 Unknown Rx levoFLOXacin [Levaquin] 750 mg PO QDAY #10 tablet 11/16/18 Unknown Rx Acetaminophen/Codeine [Tylenol 1 tab PO Q4HR PRN #10 tablet 08/08/19 Unknown Rx /Codeine # 3 tab] Amoxicillin [Amoxicillin TAB] 875 mg PO BID 10 Days #20 tablet 08/08/19 Unknown Rx ED Physical Exam - General Limitations: No Limitations General appearance: alert, in no apparent distress - Head Head exam: Present: atraumatic, normocephalic - Eye Eye exam: Present: normal appearance - ENT ENT exam: Present: mucous membranes moist, other (Gingival swelling noted on the upper jaw. No oral abscess noted. No dental abscess noted. Dental caries noted.) - Neck Neck exam: Present: normal inspection, full ROM. Absent: tenderness, meningismus - Respiratory Respiratory exam: Present: normal lung sounds bilaterally. Absent: respiratory distress, wheezes, rales - Cardiovascular Cardiovascular Exam: Present: regular rate, normal rhythm. Absent: systolic murmur, diastolic murmur, rubs, gallop - GI/Abdominal GI/Abdominal exam: Present: soft, normal bowel sounds - Extremities Exam Extremities exam: Present: normal inspection - Back Exam Back exam: Present: normal inspection - Neurological Exam Neurological exam: Present: alert, oriented X3 - Psychiatric Psychiatric exam: Present: normal affect, normal mood - Skin Skin exam: Present: warm, dry, intact, normal color. Absent: rash ED Course Vital Signs 08/07/19 23:06 Temperature 98.7 F Pulse Rate 93 H Respiratory 18 Rate Blood Pressure 138/87 O2 Sat by Pulse 99 Oximetry - Reevaluation(s) Reevaluation #1: Initial evaluation done. Patient was breast-feeding upon entering the room. I asked the patient if she would like me to come back. Patient states she would like to continue to breast-feed during evaluation. 08/07/19 23:49 Reevaluation #2: I discussed all clinical findings with patient. I discussed plan of care with patient. Patient agrees with plan of care. Patient is stable for discharge. Patient will be discharged home. Patient given discharge instructions. Patient voiced understanding of discharge instructions. 08/08/19 00:01 ED Medical Decision Making - Medical Decision Making Patient is a 33-year-old female absence emergency room with complaints of toothache. Patient states she has severe tooth pain. Patient was found to have gingival swelling without an abscess. Patient's clinical findings are consistent with a tooth infection and gingivitis and poor dentition and dental caries. - Differential Diagnosis Toothache, gingivitis, dental infection. Critical care attestation.: If time is entered above; I have spent that time in minutes in the direct care of this critically ill patient, excluding procedure time. ED Disposition Clinical Impression: Toothache, Gingivitis, Dental infection Disposition: DC-01 TO HOME OR SELFCARE Is pt being admited?: No Does the pt Need Aspirin: No Condition: Stable Instructions: Dental Caries (ED), Toothache (ED) Additional Instructions: patient to follow-up with primary care in 2 to 3 days. Patient to follow-up with dentist in 2 to 3 days. Patient to rest. Patient to increase water. Patient to take Tylenol or ibuprofen as needed for pain. Patient to take meds as directed. Patient to return to the ER if condition worsens, changes or new symptoms arise. Prescriptions: Amoxicillin [Amoxicillin TAB] 875 mg PO BID 10 Days #20 tablet Acetaminophen/Codeine [Tylenol /Codeine # 3 tab] 1 tab PO Q4HR PRN #10 tablet PRN Reason: Pain Referrals: ETHAN ALCANTAR MD [Primary Care Provider] - 2-3 Days Time of Disposition: 00:11
== END 2019-08-08 00:36 | disposition home or self-care (01) ==
LOC: ED 23:03
DX: K05.10 Chronic gingivitis, plaque induced (principal); K08.89 Other specified disorders of teeth and supporting structures; K04.7 Periapical abscess without sinus; Z79.899 Other long term (current) drug therapy; Z98.890 Other specified postprocedural states

== ENCOUNTER 2019-09-15 12:14 | Emergency (ER) | payer MEDICAID ==
[2019-09-15 12:20] VITALS: BP 141/93
--- NOTE | 2019-09-15 12:47 | Emergency Department Report ---
ED ENT HPI - General Chief complaint: Dental/Oral Stated complaint: FACIAL PAIN Time Seen by Provider: 09/15/19 12:39 Source: patient Mode of arrival: Ambulatory Limitations: No Limitations - History of Present Illness Initial comments: 33-year-old female presents emergency department complaining of dental pain is been off and on for about the past 1 month has been seen by a couple providers where she was prescribed antibiotics and pain meds but have yet to have the infected dentition is corrected. Presents to the emergency department today via EMS complaining of a throbbing pain to her left upper molar region. No odynophagia or dysphagia. No fever chills sweats no hemoptysis she reports no known trauma - Related Data Previous Rx's Medication Instructions Recorded Last Taken Type Pnv No.121/Iron/Folic Acid 1 each PO DAILY #30 tablet 07/04/18 10/25/18 Rx [ Multivitamin Tablet] Ferrous Sulfate [Feosol 325 MG tab] 325 mg PO BID #60 tablet 11/03/18 Unknown Rx Ibuprofen [Motrin 800 MG tab] 800 mg PO Q6H PRN #30 tablet 11/03/18 Unknown Rx Vit-Fe Fumar-FA [ 1 each PO QDAY #30 tablet 11/03/18 Unknown Rx Vitamin] oxyCODONE /ACETAMINOPHEN [Percocet 1 tab PO Q6H PRN #30 tablet 11/03/18 Unknown Rx 5/325 mg] HYDROcodone/APAP 5-325 [[place] 1 - 2 each PO Q6HR PRN #14 tablet 11/16/18 Unknown Rx 5/325] Ibuprofen [Motrin 800 MG tab] 800 mg PO Q8HR PRN #20 tablet 11/16/18 Unknown Rx levoFLOXacin [Levaquin] 750 mg PO QDAY #10 tablet 11/16/18 Unknown Rx Acetaminophen/Codeine [Tylenol 1 tab PO Q4HR PRN #10 tablet 08/08/19 Unknown Rx /Codeine # 3 tab] Amoxicillin [Amoxicillin TAB] 875 mg PO BID 10 Days #20 tablet 08/08/19 Unknown Rx Amoxicillin [Amoxicillin TAB] 875 mg PO BID #20 tablet 09/15/19 Unknown Rx Allergies Allergy/AdvReac Type Severity Reaction Status Date / Time No Known Allergies Allergy Unverified 07/04/18 15:42 ED Dental HPI - General Chief complaint: Dental/Oral Stated complaint: FACIAL PAIN Time Seen by Provider: 09/15/19 12:39 Source: patient Mode of arrival: Ambulatory Limitations: No Limitations - Related Data Previous Rx's Medication Instructions Recorded Last Taken Type Pnv No.121/Iron/Folic Acid 1 each PO DAILY #30 tablet 07/04/18 10/25/18 Rx [ Multivitamin Tablet] Ferrous Sulfate [Feosol 325 MG tab] 325 mg PO BID #60 tablet 11/03/18 Unknown Rx Ibuprofen [Motrin 800 MG tab] 800 mg PO Q6H PRN #30 tablet 11/03/18 Unknown Rx Vit-Fe Fumar-FA [ 1 each PO QDAY #30 tablet 11/03/18 Unknown Rx Vitamin] oxyCODONE /ACETAMINOPHEN [Percocet 1 tab PO Q6H PRN #30 tablet 11/03/18 Unknown Rx 5/325 mg] HYDROcodone/APAP 5-325 [[place] 1 - 2 each PO Q6HR PRN #14 tablet 11/16/18 Unknown Rx 5/325] Ibuprofen [Motrin 800 MG tab] 800 mg PO Q8HR PRN #20 tablet 11/16/18 Unknown Rx levoFLOXacin [Levaquin] 750 mg PO QDAY #10 tablet 11/16/18 Unknown Rx Acetaminophen/Codeine [Tylenol 1 tab PO Q4HR PRN #10 tablet 08/08/19 Unknown Rx /Codeine # 3 tab] Amoxicillin [Amoxicillin TAB] 875 mg PO BID 10 Days #20 tablet 08/08/19 Unknown Rx Amoxicillin [Amoxicillin TAB] 875 mg PO BID #20 tablet 09/15/19 Unknown Rx Allergies Allergy/AdvReac Type Severity Reaction Status Date / Time No Known Allergies Allergy Unverified 07/04/18 15:42 ED Review of Systems ROS: Stated complaint: FACIAL PAIN Other details as noted in HPI Comment: All other systems reviewed and negative ED Past Medical Hx - Past Medical History Additional medical history: Fall during and had to have a csection. Original deliver date was 12/02 and had C section done 11/01. - Surgical History Additional Surgical History: x1 - Social History Smoking Status: Never Smoker Substance Use Type: None - Medications Home Medications: Home Medications Medication Instructions Recorded Confirmed Last Taken Type Pnv No.121/Iron/Folic Acid 1 each PO DAILY #30 tablet 07/04/18 10/27/18 10/25/18 Rx [ Multivitamin Tablet] Ferrous Sulfate [Feosol 325 MG tab] 325 mg PO BID #60 tablet 11/03/18 Unknown Rx Ibuprofen [Motrin 800 MG tab] 800 mg PO Q6H PRN #30 tablet 11/03/18 Unknown Rx Vit-Fe Fumar-FA [ 1 each PO QDAY #30 tablet 11/03/18 Unknown Rx Vitamin] oxyCODONE /ACETAMINOPHEN [Percocet 1 tab PO Q6H PRN #30 tablet 11/03/18 Unknown Rx 5/325 mg] HYDROcodone/APAP 5-325 [[place] 1 - 2 each PO Q6HR PRN #14 tablet 11/16/18 Unknown Rx 5/325] Ibuprofen [Motrin 800 MG tab] 800 mg PO Q8HR PRN #20 tablet 11/16/18 Unknown Rx levoFLOXacin [Levaquin] 750 mg PO QDAY #10 tablet 11/16/18 Unknown Rx Acetaminophen/Codeine [Tylenol 1 tab PO Q4HR PRN #10 tablet 08/08/19 Unknown Rx /Codeine # 3 tab] Amoxicillin [Amoxicillin TAB] 875 mg PO BID 10 Days #20 tablet 08/08/19 Unknown Rx Amoxicillin [Amoxicillin TAB] 875 mg PO BID #20 tablet 09/15/19 Unknown Rx ED Physical Exam - General Limitations: No Limitations General appearance: alert, in no apparent distress - Head Head exam: Present: atraumatic, normocephalic - Eye Eye exam: Present: normal appearance - ENT ENT exam: Present: mucous membranes moist, other (Severe erosion to dentition #14 and 3 as well as same erosion to the right lower molar region. Airways patent tongue and uvula midline no drooling no lymphadenopathy) - Neck Neck exam: Present: normal inspection - Respiratory Respiratory exam: Present: normal lung sounds bilaterally. Absent: respiratory distress - Cardiovascular Cardiovascular Exam: Present: regular rate, normal rhythm. Absent: systolic murmur, diastolic murmur, rubs, gallop - GI/Abdominal GI/Abdominal exam: Present: soft, normal bowel sounds - Extremities Exam Extremities exam: Present: normal inspection - Back Exam Back exam: Present: normal inspection - Neurological Exam Neurological exam: Present: alert, oriented X3 - Psychiatric Psychiatric exam: Present: normal affect, normal mood - Skin Skin exam: Present: warm, dry, intact, normal color. Absent: rash ED Course Vital Signs 04/08/20 12:20 Temperature 98.4 F Pulse Rate 81 Respiratory 16 Rate Blood Pressure 141/93 [Right] O2 Sat by Pulse 98 Oximetry Critical care attestation.: If time is entered above; I have spent that time in minutes in the direct care of this critically ill patient, excluding procedure time. ED Disposition Clinical Impression: Dentalgia, Tooth infection Disposition: MED SCREENING EXAM-CONT Is pt being admited?: No Does the pt Need Aspirin: No Condition: Stable Instructions: Dental Abscess (ED), Dental Caries (ED), Acute dental trauma (ED), Toothache (ED) Additional Instructions: Please follow-up at the appropriate provider for your dental issues. You can you utilize [id number] medication in the form of Motrin and Tylenol provided there are no personal allergies to these medications. You can also utilize their analgesic gels to help your pain and and and also gargle with salt water. Referrals: [facility] [Outside] - 2-3 Days
== END 2019-09-15 14:00 | disposition left against medical advice (07) ==
LOC: ED 12:14
DX: K04.7 Periapical abscess without sinus (principal)
CPT/HCPCS: 99281

== ENCOUNTER 2021-01-24 19:27 | Emergency (ER) | payer MEDICAID ==
[2021-01-24 21:20] LABS: HCG Qualitative,Urine Positive (Negative)
[2021-01-24 21:25] LABS: Bacteria,Urine 1+ /HPF (Negative); Bilirubin,Urine NEG (Negative); Blood,Urine NEG (Negative); Color,Urine Yellow (Yellow); Mucus,Urine FEW /HPF; Protein,Urine <15 mg/dL mg/dL (Negative); Urobilinogen,Urine < 2.0 mg/dL (<2.0)
[2021-01-24 22:27] LABS: Basophils % (Auto) 0.6 % (0.0-1.8); Eosinophils % (Auto) 1.3 % (0.0-4.3); Hemoglobin 12.6 gm/dl (10.1-14.3); Lymphocytes # (Auto) 1.3 K/mm3 (1.2-5.4); Lymphocytes % (Auto) 38.8 % (13.4-35.0); Mean Corpuscular HGB Conc 33 % (30-34); Mean Corpuscular Volume 88 fl (79-97); Monocytes # (Auto) 0.3 K/mm3 (0.0-0.8); Monocytes % (Auto) 9.5 % (0.0-7.3); Platelet Count 198 K/mm3 (140-440); Red Blood Count 4.32 M/mm3 (3.65-5.03)
[2021-01-24 22:33] LABS: Alanine Aminotransferase 17 units/L (7-56); Albumin 3.8 g/dL (3.9-5); Blood Urea Nitrogen 8 mg/dL (7-17); Calcium 9.3 mg/dL (8.4-10.2); Hemolysis Index 5
[2021-01-24 22:43] LABS: BUN/Creatinine Ratio 16
--- NOTE | 2021-01-24 22:56 | Ultrasound Report ---
ULTRASOUND OBSTETRIC INDICATION / CLINICAL INFORMATION: , abd pain. TECHNIQUE: Transabdominal. COMPARISON: None available. FINDINGS: GESTATIONAL SAC: Well-defined oval shape and intrauterine in location. YOLK SAC: No significant abnormality. EMBRYO/FETUS: No significant abnormality. - [place]-Rump Length = 6.6 cm = 12 weeks, 6 day(s). - Heart Rate, beats per minute (if present) = 164 ADNEXA: 1.3 cm slightly complex left ovarian corpus luteal cyst. Right ovary within normal limits FREE FLUID: None. ADDITIONAL FINDINGS: None. IMPRESSION: 1. Single, living intrauterine with estimated sonographic age of 12 weeks, 6 day(s). 2. 1.3 cm left ovarian corpus luteal cyst Signer Name: Kevin Lloyd MD Signed: 01/24/2021 10:52 PM Workstation Name: [id number]
[2021-01-25 00:31] VITALS: BP 115/75
--- NOTE | 2021-01-25 03:45 | Emergency Department Report ---
ED HPI - General Chief complaint: Abdominal Pain Stated complaint: ABD PAIN Time Seen by Provider: 01/25/21 03:15 Source: patient Mode of arrival: Ambulatory Limitations: No Limitations - History of Present Illness Initial comments: Patient is a 35-year-old female who presents emergency room with complaints of lower abdominal pain, back pain, fever and chills and upper respiratory infection symptoms, and nasal congestion and throat irritation. Patient states her abdominal pain been going on for 6 weeks. Patient states is lower and intermittent. Patient states at this time she is not having any abdominal pain. Patient states her lower back pain been going on for 6 weeks and is intermittent. Patient at this time is not having any lower back pain. Patient states her new symptoms are the fever and chills and upper respiratory symptoms. Patient states that the symptoms been going on for 3 days. Patient states they are worsening. Patient states she has not been vaccinated against COVID-19. Patient states she is 12 weeks . Patient denies dysuria. Patient complains of dry cough. Patient states is been taking Tylenol and ibuprofen for the respiratory symptoms and fever and responds well. Patient denies recent travel. Patient denies recent international travel. Patient denies exposure to the novel coronavirus. Patient denies sick contacts. Patient denies loss of smell. Patient denies diarrhea. Patient denies coming in contact with anybody with symptoms of the novel coronavirus. MD Complaint: abdominal pain -: Sudden Location: pelvis, abdomen Radiation: none Severity scale (0 -10): 0 Quality: aching Consistency: now resolved Improves with: rest Worsens with: movement Vaginal bleeding: none :: Yes Number of weeks : 12 OB History - Current : no complications OB History - Previous Pregnancies: no complications Pre- care: followed by OB, previous ultrasound confi - Related Data Previous Rx's Medication Instructions Recorded Last Taken Type Pnv No.121/Iron/Folic Acid 1 each PO DAILY #30 tablet 07/04/18 10/25/18 Rx [ Multivitamin Tablet] Ferrous Sulfate [Feosol 325 MG tab] 325 mg PO BID #60 tablet 11/03/18 Unknown Rx Ibuprofen [Motrin 800 MG tab] 800 mg PO Q6H PRN #30 tablet 11/03/18 Unknown Rx Vit-Fe Fumar-FA [ 1 each PO QDAY #30 tablet 11/03/18 Unknown Rx Vitamin] oxyCODONE /ACETAMINOPHEN [Percocet 1 tab PO Q6H PRN #30 tablet 11/03/18 Unknown Rx 5/325 mg] HYDROcodone/APAP 5-325 [Somers 1 - 2 each PO Q6HR PRN #14 tablet 11/16/18 Unknown Rx 5/325] Ibuprofen [Motrin 800 MG tab] 800 mg PO Q8HR PRN #20 tablet 11/16/18 Unknown Rx levoFLOXacin [Levaquin] 750 mg PO QDAY #10 tablet 11/16/18 Unknown Rx Acetaminophen/Codeine [Tylenol 1 tab PO Q4HR PRN #10 tablet 08/08/19 Unknown Rx /Codeine # 3 tab] Amoxicillin [Amoxicillin TAB] 875 mg PO BID #20 tablet 09/15/19 Unknown Rx Lidocaine Viscous 2% 5 ml MM Q3H PRN #120 udc 09/15/19 Unknown Rx Fluconazole [Diflucan TAB] 100 mg PO QDAY 1 Days #1 tablet 01/05/20 Unknown Rx Valacyclovir HCl [Valacyclovir] 1,000 mg PO BID 7 Days #14 tablet 01/05/20 Unknown Rx metroNIDAZOLE [Flagyl] 500 mg PO BID 7 Days #14 tab 01/05/20 Unknown Rx Amoxicillin [Amoxicillin TAB] 875 mg PO BID 10 Days #20 tablet 01/25/21 Unknown Rx Allergies Allergy/AdvReac Type Severity Reaction Status Date / Time No Known Allergies Allergy Unverified 07/04/18 15:42 ED Review of Systems ROS: Stated complaint: ABD PAIN Other details as noted in HPI Constitutional: chills, fever Eyes: denies: eye pain, eye discharge, vision change ENT: throat pain, congestion. denies: ear pain Respiratory: denies: cough, shortness of breath, wheezing Cardiovascular: denies: chest pain, palpitations Endocrine: no symptoms reported Gastrointestinal: as per HPI, abdominal pain. denies: nausea, diarrhea Genitourinary: denies: urgency, dysuria, discharge Musculoskeletal: as per HPI. denies: back pain, joint swelling, arthralgia Skin: denies: rash, lesions Neurological: denies: headache, weakness, paresthesias Psychiatric: denies: anxiety, depression Hematological/Lymphatic: denies: easy bleeding, easy bruising ED Past Medical Hx - Past Medical History Previous Medical History?: Yes Additional medical history: Fall during and had to have a csection. Original deliver date was 12/02 and had C section done 11/01. - Surgical History Past Surgical History?: Yes Additional Surgical History: x1 - Family History Family history: no significant - Social History Smoking Status: Never Smoker Substance Use Type: None - Medications Home Medications: Home Medications Medication Instructions Recorded Confirmed Last Taken Type Pnv No.121/Iron/Folic Acid 1 each PO DAILY #30 tablet 07/04/18 10/27/18 10/25/18 Rx [ Multivitamin Tablet] Ferrous Sulfate [Feosol 325 MG tab] 325 mg PO BID #60 tablet 11/03/18 Unknown Rx Ibuprofen [Motrin 800 MG tab] 800 mg PO Q6H PRN #30 tablet 11/03/18 Unknown Rx Vit-Fe Fumar-FA [ 1 each PO QDAY #30 tablet 11/03/18 Unknown Rx Vitamin] oxyCODONE /ACETAMINOPHEN [Percocet 1 tab PO Q6H PRN #30 tablet 11/03/18 Unknown Rx 5/325 mg] HYDROcodone/APAP 5-325 [Somers 1 - 2 each PO Q6HR PRN #14 tablet 11/16/18 Unknown Rx 5/325] Ibuprofen [Motrin 800 MG tab] 800 mg PO Q8HR PRN #20 tablet 11/16/18 Unknown Rx levoFLOXacin [Levaquin] 750 mg PO QDAY #10 tablet 11/16/18 Unknown Rx Acetaminophen/Codeine [Tylenol 1 tab PO Q4HR PRN #10 tablet 08/08/19 Unknown Rx /Codeine # 3 tab] Amoxicillin [Amoxicillin TAB] 875 mg PO BID #20 tablet 09/15/19 Unknown Rx Lidocaine Viscous 2% 5 ml MM Q3H PRN #120 udc 09/15/19 Unknown Rx Fluconazole [Diflucan TAB] 100 mg PO QDAY 1 Days #1 tablet 01/05/20 Unknown Rx Valacyclovir HCl [Valacyclovir] 1,000 mg PO BID 7 Days #14 tablet 01/05/20 Unknown Rx metroNIDAZOLE [Flagyl] 500 mg PO BID 7 Days #14 tab 01/05/20 Unknown Rx Amoxicillin [Amoxicillin TAB] 875 mg PO BID 10 Days #20 tablet 01/25/21 Unknown Rx ED Physical Exam - General Limitations: No Limitations General appearance: alert, in no apparent distress - Head Head exam: Present: atraumatic, normocephalic - Eye Eye exam: Present: normal appearance, PERRL Pupils: Present: normal accommodation - ENT ENT exam: Present: mucous membranes moist - Neck Neck exam: Present: normal inspection, full ROM. Absent: tenderness, meningismus - Respiratory Respiratory exam: Present: normal lung sounds bilaterally. Absent: respiratory distress, wheezes, rales - Cardiovascular Cardiovascular Exam: Present: regular rate, normal rhythm. Absent: systolic murmur, diastolic murmur, rubs, gallop - GI/Abdominal GI/Abdominal exam: Present: soft, normal bowel sounds. Absent: distended, tenderness, guarding - Rectal Rectal exam: Present: deferred - Extremities Exam Extremities exam: Present: normal inspection - Back Exam Back exam: Present: normal inspection - Neurological Exam Neurological exam: Present: alert, oriented X3, CN II-XII intact, normal gait - Psychiatric Psychiatric exam: Present: normal affect, normal mood - Skin Skin exam: Present: warm, dry, intact, normal color. Absent: rash ED Course Vital Signs 01/24/21 20:33 Temperature 98.6 F Pulse Rate 97 H Respiratory 20 Rate Blood Pressure 115/75 O2 Sat by Pulse 99 Oximetry - Reevaluation(s) Reevaluation #1: I discussed all results and clinical findings with patient. I discussed plan of care with patient. Patient agrees with plan of care. Patient is stable for discharge. Patient will be discharged home. Patient given discharge instructions. Patient voiced understanding of discharge instructions. 01/25/21 05:02 ED Medical Decision Making - Lab Data Result diagrams: 01/24/21 21:56 01/24/21 21:56 - Radiology Data Radiology results: report reviewed, image reviewed interpreted by me: Chest x-ray: No pneumonia, no pneumothorax, no foreign body, no osseous findings, no acute findings ULTRASOUND OBSTETRIC INDICATION / CLINICAL INFORMATION: , abd pain. TECHNIQUE: Transabdominal. COMPARISON: None available. FINDINGS: GESTATIONAL SAC: Well-defined oval shape and intrauterine in location. YOLK SAC: No significant abnormality. EMBRYO/FETUS: No significant abnormality. - [place]-Rump Length = 6.6 cm = 12 weeks, 6 day(s). - Heart Rate, beats per minute (if present) = 164 ADNEXA: 1.3 cm slightly complex left ovarian corpus luteal cyst. Right ovary within normal limits FREE FLUID: None. ADDITIONAL FINDINGS: None. IMPRESSION: 1. Single, living intrauterine with estimated sonographic age of 12 weeks, 6 day(s). 2. 1.3 cm left ovarian corpus luteal cyst CHEST 1 VIEW 01/25/2021 3:06 AM INDICATION / CLINICAL INFORMATION: fever. COMPARISON: None available. FINDINGS: SUPPORT DEVICES: None. HEART / MEDIASTINUM: No significant abnormality. LUNGS / PLEURA: No significant pulmonary or pleural abnormality. No pneumothorax. ADDITIONAL FINDINGS: No significant additional findings. IMPRESSION: 1. No acute findings. - Medical Decision Making Patient is a 35-year-old female that presents emergency room for back pain and abdominal pain for 6 weeks. Patient not have any back pain or abdominal pain on initial evaluation. Patient states while she was waiting the abdominal pain and back pain resolved. Patient's abdominal pain is lower abdomen and consistent with round ligament pain. Patient is 12 weeks . Patient had ultrasound to confirm IUP and verified no acute problems with the fetus. Patient's ultrasound shows a stable IUP at 12 weeks. Patient had labs done which was essentially unremarkable. Patient hCG was elevated. Patient's urine was negative. Patient complained of upper respiratory symptoms. Patient had a chest x-ray which was negative for acute findings. Patient treated for an sinus infection. Patient given amoxicillin. Patient does not require any further emergency medical service. Patient not require inpatient services. Patient is stable for discharge. Patient discharged home. Patient given discharge instructions and instructed to follow CDC guidelines for COVID-19. Patient instructed to follow-up with [employer] to discuss COVID-19 vaccine. Patient will require outpatient testing for COVID-19. Patient instructed to take a vitamin and avoid ibuprofen. Patient discharged home. - Differential Diagnosis URI, fever, UTI, abdominal pain, round ligament pain, sinusitis Critical care attestation.: If time is entered above; I have spent that time in minutes in the direct care of this critically ill patient, excluding procedure time. ED Disposition Clinical Impression: Round ligament pain Qualifiers: Weeks of gestation: 12 weeks Qualified Code(s): Z3A.12 - 12 weeks gestation of Upper respiratory infection Qualifiers: URI type: unspecified URI Qualified Code(s): J06.9 - Acute upper respiratory infection, unspecified Abdominal pain Qualifiers: Abdominal location: lower abdomen, unspecified Qualified Code(s): R10.30 - Lower abdominal pain, unspecified Fever Qualifiers: Fever type: unspecified Qualified Code(s): R50.9 - Fever, unspecified Disposition: 01 HOME / SELF CARE / HOMELESS Is pt being admited?: No Does the pt Need Aspirin: No Condition: Stable Instructions: Abdominal Pain During , [id number], Viral Respiratory Infection, [id number], Abdominal Pain, Adult, [id number]-[id number], Fever, Adult, [id number], Abdominal Pain (ED) Additional Instructions: Patient to follow-up with primary care in 2 to 3 days. Patient to follow-up with [facility] in 2 to 3 days. Patient to take a vitamin. Patient to avoid ibuprofen. Patient to rest. Patient to increase water. Patient to avoid strenuous exercise or heavy lifting until cleared by [facility] MA[facility]GER. Patient to self quarantine for 14 days. Patient to have Covid testing as an outpatient. Patient to follow CDC guidelines for COVID-19. Patient to take Tylenol as needed for pain and/or fever. Patient to take meds as directed. Patient to return to the ER if condition worsens, changes or new symptoms arise. Prescriptions: Amoxicillin [Amoxicillin TAB] 875 mg PO BID 10 Days #20 tablet Referrals: PRIMARY CARE, [Primary Care Provider] - 2-3 Days Time of Disposition: 05:07
--- NOTE | 2021-01-25 04:15 | XRay Report ---
CHEST 1 VIEW 01/25/2021 3:06 AM INDICATION / CLINICAL INFORMATION: fever. COMPARISON: None available. FINDINGS: SUPPORT DEVICES: None. HEART / MEDIASTINUM: No significant abnormality. LUNGS / PLEURA: No significant pulmonary or pleural abnormality. No pneumothorax. ADDITIONAL FINDINGS: No significant additional findings. IMPRESSION: 1. No acute findings. Signer Name: Kevin Lloyd MD Signed: 01/25/2021 4:10 AM Workstation Name: [id number]
== END 2021-01-25 05:52 | disposition home or self-care (01) ==
LOC: ED 19:27
DX: O26.891 Other specified pregnancy related conditions, first trimester (principal); Z3A.12 12 weeks gestation of pregnancy; R10.2 Pelvic and perineal pain; J06.9 Acute upper respiratory infection, unspecified; R10.30 Lower abdominal pain, unspecified; R50.9 Fever, unspecified; Z98.890 Other specified postprocedural states
CPT/HCPCS: 36415; 71045; 76801; 80053; 81001; 81025; 84702; 85025; 99284

== ENCOUNTER 2021-08-27 15:23 | Emergency (ER) | payer MEDICAID ==
--- NOTE | 2021-08-27 18:39 | XRay Report ---
CERVICAL SPINE, 3 VIEWS INDICATION / CLINICAL INFORMATION: pain. COMPARISON: None available. FINDINGS: Vertebral body heights are maintained. Disc spaces are fairly well-preserved. Alignment is normal. No fracture or significant degenerative change identified. Paravertebral soft tissues are grossly unrem arkable. Visualized lung apices are clear. IMPRESSION: No acute significant osseous abnormality of the cervical spine. Signer Name: Lulu Galvan MD Signed: 08/27/2021 6:35 PM Workstation Name: [id number]
--- NOTE | 2021-08-27 18:40 | XRay Report ---
CHEST 1 VIEW INDICATION / CLINICAL INFORMATION: pain. COMPARISON: 01/25/2021 FINDINGS: SUPPORT DEVICES: None. HEART / MEDIASTINUM: No significant abnormality. LUNGS / PLEURA: No significant pulmonary or pleural abnormality. No pneumothorax. ADDITIONAL FINDINGS: No significant additional findings. IMPRESSION: 1. No acute findings. No interval change. Signer Name: Lulu Galvan MD Signed: 08/27/2021 6:36 PM Workstation Name: [id number]
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
[2021-08-27 19:03] VITALS: BP 137/88
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
== END 2021-08-27 19:47 | disposition home or self-care (01) ==
LOC: ED 15:23
DX: S13.9XXA Sprain of joints and ligaments of unspecified parts of neck, initial encounter (principal); S83.92XA Sprain of unspecified site of left knee, initial encounter; R07.89 Other chest pain; V89.2XXA Person injured in unspecified motor-vehicle accident, traffic, initial encounter; Y93.89 Activity, other specified; Y92.89 Other specified places as the place of occurrence of the external cause; Y99.8 Other external cause status
CPT/HCPCS: 71045; 72040; 99283